=== PATIENT | female | born 1955 | race Caucasian/White ===

== ENCOUNTER → 2017-09-07 13:50 | Outpatient (CLI) | payer BC, SELFPAY ==
--- NOTE | 2017-09-07 13:53 | RAD_ITS ---
STUDY: X-RAY - RIGHT KNEE REASON FOR EXAM: Female, 61 years old. Bilateral knee pain without a known traumatic event. TECHNIQUE: 4 view(s) of the knee. COMPARISON: None. FINDINGS: Normal visualized distal femur. Normal visualized proximal tibia and fibula. Normal proximal tibiofibular articulation. There is articular space narrowing medially. Normal lateral femorotibial compartment. There is slight lateral tilt of the patella. There is a small suprapatellar joint effusion. RAD/Knee 4 or More Views IMPRESSION: Mild medial and patellofemoral compartmental arthrosis with small effusion. Electronically Signed: Willie Wood MD at 11:22 EDT , Service support ,
--- NOTE | 2017-09-07 13:53 | RAD_ITS ---
STUDY: X-RAY - LEFT KNEE REASON FOR EXAM: Female, 61 years old. Bilateral knee pain. No history of trauma. TECHNIQUE: 4 view(s) of the knee. COMPARISON: None. FINDINGS: Normal visualized distal femur. Normal visualized proximal tibia and fibula. Normal proximal tibiofibular articulation. There is mild arthrosis of the medial compartment. Normal lateral femorotibial compartment. There is slight lateral subluxation of the patella. There is a small joint effusion. RAD/Knee 4 or More Views IMPRESSION: Mild medial and patellofemoral compartment arthrosis with small effusion. Electronically Signed: Willie Wood MD at 11:21 EDT , Service support ,
== END ==
PROVIDERS: Family Provider Family Medicine; PCP Family Medicine; Visit Provider Orthopaedic Surgery
DX: M25.561 Pain in right knee (principal); M25.562 Pain in left knee
CPT/HCPCS: 73564

== ENCOUNTER → 2017-09-08 13:15 | Outpatient (CLI) | payer BC, SELFPAY ==
--- NOTE | 2017-09-08 13:17 | RAD_ITS ---
STUDY: X-RAY - LEFT WRIST REASON FOR EXAM: Female, 61 years old. Pain and swelling following a fall. TECHNIQUE: 3 view(s) of the wrist were obtained. COMPARISON: None. FINDINGS: Normal visualized distal radius and ulna. Normal radiocarpal articulation. Normal distal radioulnar articulation. Normal carpal bones. Normal carpal articulations. Normal carpometacarpal articulation of the thumb. Normal second through fifth carpometacarpal articulations. Normal visualized metacarpal bones. Dorsal soft tissue swelling. RAD/Wrist min 3 Views IMPRESSION: Dorsal soft tissue swelling. Electronically Signed: Satnam Ellis MD at 13:49 EDT Tel [phone], Service support ,
== END ==
PROVIDERS: Family Provider Family Medicine; PCP Family Medicine; Visit Provider Physician Assistant Surgical
DX: S60.212A Contusion of left wrist, initial encounter (principal)
CPT/HCPCS: 73110

== ENCOUNTER 2017-10-18 13:00 | Outpatient (RCR) | payer BC, SELFPAY ==
--- NOTE | 2017-09-19 12:58 | HP.PTEVAL ---
Patient's Visit Information SHAMIR HELM is a 61 year old F referred to Physical Therapy by Va Sandoval DO with a diagnosis of B chondromalacia patella, L jimenez's Cyst. Date of Evaluation: 09/19/17 Physical Therapist: BRIAN RichardsonT, OC - Visit Plan Frequency: 2-3x /Week Duration: 4 Weeks Plan: 2-3x/week for 4 weeks for. 1. ITB rollout and stretch. 2. teach hip ext, abd, flexion strength and stabs and progress NWB to WB and progress HEP. 3. Tens and ice as needed. - Subjective Subjective: L knee hurts actually both hurt anteriorly. Has Bakers cyst posteriorly. L knee started hurting bad over winter and visited son in April and worked in garden and hard time getting into truck at that point. Kept hurting for two weeks then got gradually better. stairs remain difficult. Currently it is not hurting very much. Weather is better. Hurts on steps. Activities are interrupted as far as long walks go, standing too long is a problem so she sits when she gets places. Sleeping is interrupted occasionally. Hard to get comfy. 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 These were no problem last year. Fell after saw doctor and hurt L wrist adn was put on ibuprofen whcih has helped knee pain.xrays negative. - Pain L knee Pain Intensity (Out of 10): 3 Pain Intensity Range: 0, 4 R knee Pain Intensity (Out of 10): 2 Pain Intensity Range: 0, 3 - Objective Walks and transfers I without antalgia today. Steps reciprocal with some tightness anteriorly B. Pes planus B causing internal tibial rotation L >R. Cyst present posterior on L LE, mild tender. LE AROM WFL at knees to 125 with tightness end range of flexion, full ext. HIPs are tight in ITB B, otherwise ROM WFL. Strength in knees 4+/5 with mild ext discomfort at full ext, hips are 3+ ext adn abd, 4- flexion, no pain. ankles 4+/5. Reflexes 2/3 patella and achilles. + patellar grind L adn max tender under lateral knee cap. - anterior drawer and varus valgus B. - Goals Goal 1:: I approp HEP for hip strength and with orthotics if patient desires. Goal Time Frame: 4-6 Weeks Goal 2:: Pain in B knees 0-1/10 at all times and 90% improved. Goal Time Frame: 4-6 Weeks Goal 3:: Walk for fitness withotu increased knee pain. Goal Time Frame: 4-6 Weeks - Rehabilitation Potential Physical Therapy Diagnosis: B patellar pain, tight ITB, weakness in hips Rehabilitation Potential: Fair - Anticipated Interventions Patient/Client Instruction: Educate patient on: Condition, Plan of Care For the Purpose of:: To decrease pain, To decrease swelling/inflammation Therapeutic Exercise to Include: Strength training, Flexibilty training For the Purpose of:: To decrease pain, To increase ROM, To improve nutrient delivery to tissue, To improve muscle performance and motor function, To improve ability of physical actions for home/community/work/leisure Manual Therapy Techniques to Include: Soft tissue mobilization For the Purpose of:: To improve nutrient delivery to tissue TENS: Yes Cryotherapy (ice pack, ice massage): Yes For the Purpose of:: To decrease pain, To decrease swelling/inflammation Thank you for the opportunity to evaluate your patient. For Medicare and Medicare HMO plans, please review the plan of care and approve it. It will need to be FAXED BACK to us at [phone] for Medicare purposes. Please let me know if there are questions or concerns regarding this plan of care. Physician Signature: Date:
--- NOTE | 2017-10-13 13:55 | HP.PTREVAL ---
Va Sandoval, DO, It has been my pleasure to treat SHAMIR HELM over the last 9 visits for B chondromalacia patella, L jimenez's Cyst. Please see the progress note below for an update on the physical therapy plan of care! Subjective: Still has some pain, not as intense. Was more this am for no apparent reason. Hips hurt lying in bed. Has ex to do at home. Objective/Function: 0-128 AROM B knees, stiff at end, blending tank tender helper underside patella. Strength to test in knees 5/5, hips 4+ abd and ext, 4/5 rotation. Walks well btu stiff upon arising, steps are reciprocal with stiff soreness descending. OVERALL SLOW IMPROVEMENT. 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 EDUCATED HER THAT IMPROVEMENT WILL BE SLOW AND SHE NEEDS CONSISTENCY WITH EX. WILL F/U WITH DOCTOR IN 2 WEEKS. Plan Plan: one more week of strength, please focus machines that patient can do at own clubhouse(she will bring a list). Then patient to see doctor the following week and stop in and let us know next step. Please do LEFS next week and give to EG. Goals Goal 1:: I approp HEP for hip strength and with orthotics if patient desires. Goal Time Frame: 4-6 Weeks Goal Progress: Goal Met Goal 2:: Pain in B knees 0-1/10 at all times and 90% improved. Goal Time Frame: 4-6 Weeks Goal Progress: slow progression Goal 3:: Walk for fitness withotu increased knee pain. Goal Time Frame: 4-6 Weeks Goal Progress: could, too busy Anticipated Interventions Patient/Client Instruction: Educate patient on: Condition, Plan of Care For the Purpose of:: To decrease pain, To decrease swelling/inflammation Therapeutic Exercise to Include: Strength training, Flexibilty training For the Purpose of:: To decrease pain, To increase ROM, To improve nutrient delivery to tissue, To improve muscle performance and motor function, To improve ability of physical actions for home/community/work/leisure Manual Therapy Techniques to Include: Soft tissue mobilization For the Purpose of:: To improve nutrient delivery to tissue TENS: Yes Cryotherapy (ice pack, ice massage): Yes For the Purpose of:: To decrease pain, To decrease swelling/inflammation Please do not hesitate to contact me at [phone] by phone or if you have questions or concerns regarding this new plan of care! Sincerely, Mitchell Knight, DPT, OC
--- NOTE | 2017-12-28 11:35 | HP.PT.NRP ---
HP - Discharge Summary (1) - Patient Information SHAMIR HELM was seen in my office for initial evaluation on 09/19/17. The following Plan of Care was established for this patient: Initial Frequency: 2-3x /Week Initial Duration: 4 Weeks - Anticipated Interventions Patient/Client Instruction: Educate patient on: Condition, Plan of Care For the Purpose of:: To decrease pain, To decrease swelling/inflammation Therapeutic Exercise to Include: Strength training, Flexibilty training For the Purpose of:: To decrease pain, To increase ROM, To improve nutrient delivery to tissue, To improve muscle performance and motor function, To improve ability of physical actions for home/community/work/leisure Manual Therapy Techniques to Include: Soft tissue mobilization For the Purpose of:: To improve nutrient delivery to tissue TENS: Yes Cryotherapy (ice pack, ice massage): Yes For the Purpose of:: To decrease pain, To decrease swelling/inflammation This patient was last seen in our office 10/18/17. Pertinent comments regarding their Physical therapy will appear below: Pt seen 11 visits of strength and progressed to I gym program. She was to stop in after her doctor f/u to ensure progress and plan but did not. At this point, it has been over two months and I will discontinue per POC At this point I will be discontinuing this patient from physical therapy. I would be happy to see this patient again in the future if found appropriate by the physician. Thank you! Mitchell Knight, DPT, OC
== END 2017-10-18 19:00 | disposition home or self-care (01) ==
LOC: PT 13:00
PROVIDERS: Family Provider Family Medicine; PCP Family Medicine; Visit Provider Orthopaedic Surgery
DX: M22.42 Chondromalacia patellae, left knee (principal); M22.41 Chondromalacia patellae, right knee; M71.22 Synovial cyst of popliteal space [Baker], left knee
CPT/HCPCS: 97110; 97140; 97162; 97530

== ENCOUNTER 2018-02-27 08:07 | Day surgery (SDC) | payer BC, SELFPAY ==
[2018-02-27] VITALS (11 sets, daily range): BP systolic 87–111; BP diastolic 59–76; PULSE 55–82; RESP 16–18; TEMP 36–37; O2SAT 95–100; BMI 28.8
--- NOTE | 2018-02-27 09:30 | COLBX_PTH ---
PATIENT: SHAMIR HELM LOC: EN U#:[id number] AGE/SX: 62/F ROOM: RE02/27/[address]: Dr. Bird Martel MD : 1955 BED: DIS: 02/27/2018 SPEC #: [id number] RECD: 02/27/18 14:35 STATUS: LATA REKelli #: [id number] WILY: 02/27/18 09:[address]: Bird Martel DEPT: SURGICAL PATHOLOGY RECD BY: Karlos Douglas ENTERED: 02/28/18 10:15 SP TYPE: COLON BX OTHR DR: MD Claudio Kim MD Tissues: Descending colon Procedures: Surgery Specimen Level IV HEADER OPERATION: Colonoscopy (MOD) PRE-OP DIAGNOSIS: Screening TISSUE SUBMITTED: Polyp of descending colon MICROSCOPIC DIAGNOSIS Descending colon polyp, biopsy: Rare fragment of benign colonic mucosa. Abundant fecal debris. AM:jenny 03/01/18 MICROSCOPIC DESCRIPTION Slides are reviewed. GROSS DESCRIPTION Received in fixative is one container labeled with the patient's name and designated descending colon polyp. The specimen consists of multiple irregular fragments of light samuel soft tissue including fecal debris that in aggregate measure 1 x 0.6 x 0.1 cm. The specimen is totally submitted in one cassette. / AM:jenny 02/28/18 TC:5 CPT: 10419
--- NOTE | 2018-02-27 09:52 | PCM.HP.STD ---
Problem List (1) Screening for intestinal cancer Status: Acute History of Present Illness Date of Admission: 02/27/18 The patient is a 62 year old F who presents for screening colonoscopy. Her previous one was 10 or 11 years prior. She has no bright red blood per rectum or melena. No abdominal pain. No unexpected weight loss. She otherwise enjoys good health. There is no family history of colon cancer Past Medical History Medical History: Medical History (Last Updated 09/08/17 @ 13:09 by Valarie Kiran) Joint swelling M25.40 Knee pain M25.569 Morning stiffness of joints M25.60 hx of cancer Allergies No Known Allergies Allergy (Verified 02/26/18 13:35) Home Medications: Ambulatory Orders Medication Instructions Recorded glucosamine sulfate 500 mg tablet 500 mg PO BID 09/07/17 omega-3 fatty acids 1,000 mg 1,000 mg PO QDAY 09/07/17 capsule Surgical History: Surgical History (Last Updated 09/07/17 @ 13:35 by Carmen Garcia) Hx of tubal ligation Z98.51 Smoking Status: Former smoker Review of Systems Constitutional: Denies: Anorexia HEENT: Denies: Difficulty Swallowing Cardiovascular: Denies: Chest Pain Respiratory: Denies: Cough Gastrointestinal: Denies: Abdominal Pain, Hematochezia, Melena Skin: Denies: Dryness Endocrine: Denies: Change in Body Habitus VTE Information - Inpt Only VTE Present on Admission: No Patient Problems: Active and Suspected Problems (Last Updated 09/08/17 @ 13:09 by Valarie Kiran) Screening for intestinal cancer (Acute) - Physical Exam General: Alert, Oriented x3, Cooperative, No apparent distress HEENT: Atraumatic Oral: Moist Mucosa Neck: Supple Lungs: Clear to auscultation Cardiovascular: Regular rate, Regular Rhythm Abdomen: Bowel Sounds Present, Soft Musculoskeletal: No Tenderness to Palpation of Joints or Extremities Psych/Mental Status: Normal Affect Vital Signs Temp Pulse Resp BP Pulse Ox 98.6 F 82 18 105/73 97 02/27/18 08:34 02/27/18 08:34 02/27/18 08:34 02/27/18 08:34 02/27/18 08:34 Oxygen Delivery Method Room Air Weight: 152 lb 5.431 oz Body Mass Index (BMI) 28.8 Assessment/Plan All Active Problems (Last Updated 09/08/17 @ 13:09 by Valarie Kiran) Screening for intestinal cancer (Acute) Strain of wrist, left (Acute) Contusion of left wrist, initial encounter (Acute) Recommended the patient is screening colonoscopy with possible biopsy or polypectomy as indicated. She is aware of the technique, benefits, risks, alternatives. She has had an opportunity to ask and have questions answered. She presents via our open access program. We will proceed as noted. Bird Martel M.D., F.A.C.S.
--- NOTE | 2018-02-27 10:21 | OP.ENDO_ITS ---
Patient Name: Radha Smith Procedure Date: 02/27/2018 9:44 AM Date of : 1955 Age: 62 Procedure: Colonoscopy Indications: Screening for colorectal malignant neoplasm Providers: Bird Martel MD Referring MD: Bird Martel MD Medicines: Midazolam 3 mg IV, Meperidine 100 mg IV Patient Profile: Last Colonoscopy: more than 10 years ago. Complications: No immediate complications. Procedure: Pre-Anesthesia Assessment: - Prior to the procedure, a History and Physical was performed, and patient medications and allergies were reviewed. The patient's tolerance of previous anesthesia was also reviewed. The risks and benefits of the procedure and the sedation options and risks were discussed with the patient. All questions were answered, and informed consent was obtained. Prior Anticoagulants: The patient has taken no previous anticoagulant or antiplatelet agents. ASA Grade Assessment: II - A patient with mild systemic disease. After reviewing the risks and benefits, the patient was deemed in satisfactory condition to undergo the procedure. After I obtained informed consent, the scope was passed under direct vision. Throughout the procedure, the patient's blood pressure, pulse, and oxygen saturations were monitored continuously. The pediatric colonoscope was introduced through the anus and advanced to the cecum, identified by appendiceal orifice and ileocecal valve. The colonoscopy was performed without difficulty. The patient tolerated the procedure well. The quality of the bowel preparation was good. The ileocecal valve was photographed. Moderate Sedation: Moderate (conscious) sedation was personally administered by the endoscopist. The following parameters were monitored: oxygen saturation, heart rate, blood pressure, and response to care. Total physician intraservice time was 15 minutes. Scope In: 9:59:12 AM Scope Withdrawal Time 0 hours 11 minutes 36 seconds Scope Out: 10:17:47 AM Total Procedure Duration Time 0 hours 18 minutes 35 seconds Findings: The perianal and digital rectal examinations were normal. A 6 mm polyp was found in the mid descending colon. The polyp was sessile. The polyp was removed with a hot snare. Resection and retrieval were complete. Multiple diverticula were found in the sigmoid colon and descending colon. Impression: - One 6 mm polyp in the mid descending colon, removed with a hot snare. Resected and retrieved. - Diverticulosis in the sigmoid colon and in the descending colon. Recommendation: - Discharge patient to home. - Resume previous diet. - Continue present medications. - Repeat colonoscopy in 5 years for surveillance based on pathology results. - Telephone my office for pathology results in 1 week. Procedure Code(s): --- Professional --- 15116, Colonoscopy, flexible; with removal of tumor(s), polyp(s), or other lesion(s) by snare technique 59341, 59, Moderate sedation services provided by the same physician or other qualified health career development associate performing the diagnostic or therapeutic service that the sedation supports, requiring the presence of an independent trained observer to assist in the monitoring of the patient's level of consciousness and physiological status; initial 15 minutes of intraservice time, patient age 5 years or older Diagnosis Code(s): --- Professional --- Z12.11, Encounter for screening for malignant neoplasm of colon D12.4, Benign neoplasm of descending colon K57.30, Diverticulosis of large intestine without perforation or abscess without bleeding CPT copyright 2017 [employer]. All rights reserved. The codes documented in this report are preliminary and upon developer architect review may be revised to meet current compliance requirements. Bird Martel MD 02/27/2018 10:21:11 AM This report has been signed electronically. Number of Addenda: 0 Note Initiated On: 02/27/2018 9:44 AM
--- OUTSIDE RECORDS SUMMARY | 2018-05-31 12:53 | XMS RPT_ITS ---
:1955 Author Organization [place] Support Name Relationship Address Phone ÁLVARO SMITH Unavailable [address] + [place] [address] WOOBR Unavailable [address] [place] [address] KENNY SMITHE Unavailable [address] + [place] [address] WOOBR Unavailable [address] [place] [address] VOLODYMYR, ÁLVARO Unavailable [address] + [place] [address] WOOBR Unavailable [address] [place] [address] VOLODYMYR, ÁLVARO Unavailable [address] + [place] [address] WOOBR Unavailable [address] [place] [address] VOLODYMYR, ÁLVARO Unavailable [address] + [place] [address] WOOBR Unavailable [address] [place] [address] VOLODYMYR, ÁLVARO Unavailable [address] + [place] [address] WOOBR Unavailable [address] [place] [address] VOLODYMYR, ÁLVARO Unavailable [address] + [place] [address] WOOBR Unavailable [address] [place] [address] VOLODYMYR, ÁLVARO Unavailable [address] + [place] [address] WOOBR Unavailable [address] [place] [address] ÁLVARO SMITH Un[address] + [place] [address] WOOBR Unavailable [address] [place] [address] ÁLVARO SMITH Unavailable [address] + [place] [address] WOOBR Unavailable [address] [place] [address] Care Team Providers Name Role Phone Bird Martel Attending Unavailable Cebul, Bird Referring Unavailable Wilson, Claudio Primary Care Unavailable Cebul, Bird Consulting Unavailable Chicorelli, Va Attending Unavailable Wilson, Claudio Referring Unavailable Chicorelli, Va Attending Unavailable Chicorelli, Va Referring Unavailable Wilson, Claudio Primary Care Unavailable Chicorelli, Va Attending Unavailable Chicorelli, Va Referring Unavailable Wilson, Claudio Primary Care Unavailable Rito, Scottie Attending Unavailable Wilson, Claudio Referring Unavailable Wilson, Claudio Primary Care Unavailable Rito, Scottie Attending Unavailable Rito, Scottie Referring Unavailable Wilson, Claudio Primary Care Unavailable Chicorelli, Va Attending Unavailable Wilson, Claudio Referring Unavailable Chicorelli, Va Attending Unavailable Wilson, Claudio Referring Unavailable Wilson, Claudio Primary Care Unavailable Nurse, Surgery Attending Unavailable Wilson, Claudio Referring Unavailable Cebul, Bird Attending Unavailable Cebul, Bird Referring Unavailable Wilson, Claudio Primary Care Unavailable PROBLEMS PROBLEMS DATE TYPE CONDITION / CODE ATTENDING STATUS SOURCE 10/26/2017 Unknown M17.0 - Bilateral Chicorelli, Active [place] primary [facility] osteoarthritis of Hospital knee / M17.0(ICD-10) Repository 12/28/2017 Unknown 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, 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, left knee Hospital / M22.42(ICD-10) Repository 09/08/2017 Unknown S60.212A - Contusion Socttie Veras Active [place] of left wrist, Community initial encounter / Hospital S60.212A(ICD-10) Repository 09/07/2017 Unknown M25.561 - Pain in Chicorelli, Active [place] right knee / [facility] M25.561(ICD-10) Hospital Repository 09/07/2017 Unknown M25.562 - Pain in Chicorelli, Active [place] left knee / [facility] M25.562(ICD-10) Hospital Repository PROCEDURES PROCEDURES No Procedure Records FoundRESULTS RESULTS OPERATIVE REPORT - Observed: 02/27/2018 Status: F Source: [place] [facility] 10:21 AM [facility] Medical Records Department [address] [place] [address] Operative Report - Endoscopy MR#: [id number] Acct: [id number] Name: SHAMIR SMITH Rep #: [id number] : 1955 62 From: Bird Martel MD PCP: Claudio Wilson MD Status: REG [facility] Patient Name: Shamir Smith Procedure Date: 02/27/2018 9:44 AM Date of : 1955 Age: 62 Procedure: Colonoscopy Indications: Screening for colorectal malignant neoplasm Providers: Bird Martel MD Referring MD: Bird Martel MD Medicines: Midazolam 3 mg IV, Meperidine 100 mg IV Patient Profile: Last Colonoscopy: more than 10 years ago. Complications: No immediate complications. Procedure: Pre-Anesthesia Assessment: - Prior to the procedure, a History and Physical was performed, and patient medications and allergies were reviewed. The patient's tolerance of previous anesthesia was also reviewed. The risks and benefits of the procedure and the sedation options and risks were discussed with the patient. All questions were answered, and informed consent was obtained. Prior Anticoagulants: The patient has taken no previous anticoagulant or antiplatelet agents. ASA Grade Assessment: II - A patient with mild systemic disease. After reviewing the risks and benefits, the patient was deemed in satisfactory condition to undergo the procedure. After I obtained informed consent, the scope was passed under direct vision. Throughout the procedure, the patient's blood pressure, pulse, and oxygen saturations were monitored continuously. The pediatric colonoscope was introduced through the anus and advanced to the cecum, identified by appendiceal orifice and ileocecal valve. The colonoscopy was performed without difficulty. The patient tolerated the procedure well. The quality of the bowel preparation was good. The ileocecal valve was photographed. Moderate Sedation: Moderate (conscious) sedation was personally administered by the endoscopist. The following parameters were monitored: oxygen saturation, heart rate, blood pressure, and response to care. Total physician intraservice time was 15 minutes. Scope In: 9:59:12 AM Scope Withdrawal Time 0 hours 11 minutes 36 seconds Scope Out: 10:17:47 AM Total Procedure Duration Time 0 hours 18 minutes 35 seconds Findings: The perianal and digital rectal examinations were normal. A 6 mm polyp was found in the mid descending colon. The polyp was sessile. The polyp was removed with a hot snare. Resection and retrieval were complete. Multiple diverticula were found in the sigmoid colon and descending colon. Impression: - One 6 mm polyp in the mid descending colon, removed with a hot snare. Resected and retrieved. - Diverticulosis in the sigmoid colon and in the descending colon. Recommendation: - Discharge patient to home. - Resume previous diet. - Continue present medications. - Repeat colonoscopy in 5 years for surveillance based on pathology results. - Telephone my office for pathology results in 1 week. Procedure Code(s): --- Professional --- 27663, Colonoscopy, flexible; with removal of tumor(s), polyp(s), or other lesion(s) by snare technique 73283, 59, Moderate sedation services provided by the same physician or other qualified health career coordinator performing the diagnostic or therapeutic service that the sedation supports, requiring the presence of an independent trained observer to assist in the monitoring of the patient's level of consciousness and physiological status; initial 15 minutes of intraservice time, patient age 5 years or older Diagnosis Code(s): --- Professional --- Z12.11, Encounter for screening for malignant neoplasm of colon D12.4, Benign neoplasm of descending colon K57.30, Diverticulosis of large intestine without perforation or abscess without bleeding CPT copyright 2017 [employer]. All rights reserved. The codes documented in this report are preliminary and upon curbstone setter review may be revised to meet current compliance requirements. Bird Martel MD 02/27/2018 10:21:11 AM This report has been signed electronically. Number of Addenda: 0 Note Initiated On: 02/27/2018 9:44 AM 02/27/18 1021 Date Bird Martel MD Cosigner Signature: Date (if indicated) CC: Claudio Wilson MD; Bird Martel MD Date Dictated: 02/27/18943 Date Transcribed: Wireless Sales Manager: MARCUS Signed HISTORY AND PHYSICAL Observed: 02/27/2018 Status: F Source: [place] [facility] 9:54 AM [facility] Medical Records Department [address] [place] [address] History and Physical 02/27/18951 MR#: [id number] Acct: [id number] Name: SHAMIR SMITH Rep #: [id number] : 1955 62 From: Bird Martel MD PCP: Claudio Wilson MD Status: REG [facility] Y Location: [place] [address] Problem List (1) Screening for intestinal cancer Status: Acute History of Present Illness Date of Admission: 02/27/18 The patient is a 62 year old F who presents for screening colonoscopy. Her previous one was 10 or 11 years prior. She has no bright red blood per rectum or melena. No abdominal pain. No unexpected weight loss. She otherwise enjoys good health. There is no family history of colon cancer Past Medical History Medical History: Medical History (Last Updated 09/08/17 @ 13:09 by Valarie Kiran) Joint swelling M25.40 Knee pain M25.569 Morning stiffness of joints M25.60 hx of cancer Allergies No Known Allergies Allergy (Verified 02/26/18 13:35) Home Medications: Ambulatory Orders Medication Instructions Recorded glucosamine sulfate 500 mg tablet 500 mg PO BID 09/07/17 omega-3 fatty acids 1,000 mg 1,000 mg PO QDAY 09/07/17 capsule Surgical History: Surgical History (Last Updated 09/07/17 @ 13:35 by Carmen Garcia) Hx of tubal ligation Z98.51 Smoking Status: Former smoker Review of Systems Constitutional: Denies: Anorexia HEENT: Denies: Difficulty Swallowing Cardiovascular: Denies: Chest Pain Respiratory: Denies: Cough Gastrointestinal: Denies: Abdominal Pain, Hematochezia, Melena Skin: Denies: Dryness Endocrine: Denies: Change in Body Habitus VTE Information - Inpt Only VTE Present on Admission: No Patient Problems: Active and Suspected Problems (Last Updated 09/08/17 @ 13:09 by Valarie Kiran) Screening for intestinal cancer (Acute) - Physical Exam General: Alert, Oriented x3, Cooperative, No apparent distress HEENT: Atraumatic Oral: Moist Mucosa Neck: Supple Lungs: Clear to auscultation Cardiovascular: Regular rate, Regular Rhythm Abdomen: Bowel Sounds Present, Soft Musculoskeletal: No Tenderness to Palpation of Joints or Extremities Psych/Mental Status: Normal Affect Vital Signs Temp Pulse Resp BP Pulse Ox 98.6 F 82 18 105/73 97 02/27/18 08:34 02/27/18 08:34 02/27/18 08:34 02/27/18 08:34 02/27/18 08:34 Oxygen Delivery Method Room Air Weight: 152 lb 5.431 oz Body Mass Index (BMI) 28.8 Assessment/Plan All Active Problems (Last Updated 09/08/17 @ 13:09 by Valarie Kiran) Screening for intestinal cancer (Acute) Strain of wrist, left (Acute) Contusion of left wrist, initial encounter (Acute) Recommended the patient is screening colonoscopy with possible biopsy or polypectomy as indicated. She is aware of the technique, benefits, risks, alternatives. She has had an opportunity to ask and have questions answered. She presents via our open access program. We will proceed as noted. Bird Martel M.D., F.A.C.S. 02/27/18 0954 <Electronically signed by Bird Martel MD> Date Bird Martel MD Cosigner Signature: Date (if applicable) CC: Claudio Wilson MD; Bird Martel MD Signed COLON BIOPSY (CHOOSE Observed: 02/27/2018 Status: F Source: [place] SITE) 9:30 AM [facility] Patient: SHAMIR SMITH : 1955 (62/F) Acct Num: [id number] Phys: Delonte CADENA,Bird Unit Num: [id number] Loc: EN Specimen: [id number] Received: 02/27/182 Spec Type: COLON BX TISSUES 1 TISSUES: Descending colon GROSS DESCRIPTION Received in fixative is one container labeled with the patient's name and designated descending colon polyp. The specimen consists of multiple irregular fragments of light samuel soft tissue including fecal debris that in aggregate measure 1 x 0.6 x 0.1 cm. The specimen is totally submitted in one cassette. / AM:jenny 02/28/18 TC:5 CPT: 25835 HEADER OPERATION: Colonoscopy (MOD) PRE-OP DIAGNOSIS: Screening TISSUE SUBMITTED: Polyp of descending colon MICROSCOPIC DESCRIPTION Slides are reviewed. MICROSCOPIC DIAGNOSIS Descending colon polyp, biopsy: Rare fragment of benign colonic mucosa. Abundant fecal debris. AM:jenny 03/01/18 Signed Karson Rousseau DO 03/01/18 <signature on file> Performed By: #### PCOLBX #### [facility] [address] [place] [address]. [place], [address] ORTHOPEDIC VISIT Observed: 10/26/2017 Status: F Source: [place] REPORT 2:51 PM [facility] Orth[facility] Sports Medicine [address] [place] [address] OFFICE VISIT Date of Service: 10/26/17 MR#: [id number] Acct: [id number] Name: SHAMIR SMITH Rep #: [id number] : 1955 Provider: Va Sandoval DO Age/Sex: 61/F Location[place] [facility] Status: Signed Intake Intake Visit Reasons: BILAT KNEE PAIN Chief Complaint: bilat knee pain Is patient in pain?: Yes Allergies No Known Allergies Allergy (Verified 10/26/17 13:14) Medications glucosamine sulfate 500 mg tablet 500 mg PO BID 09/07/17 [History Confirmed 10/26/17] omega-3 fatty acids 1,000 mg capsule 1,000 mg PO QDAY 09/07/17 [History Confirmed 10/26/17] PFSH Medical History Joint swelling (Acute) Knee pain (Acute) Morning stiffness of joints (Acute) hx of cancer (Acute) Surgical History Hx of tubal ligation (Acute) Social History Smoking Status: Former smoker how long ago did patient quit smoking: stopped in 1976 alcohol intake: current alcohol intake frequency: a few times a week what type of physical activity do you participate in: none do you feel safe at home: Yes HPI BILAT KNEE PAIN: Details: SHAMIR SMITH is a 61 year old F here today for a followup on her bilateral knees. She states that she continues to have knee pain and denies any improvement. She has pain over her bilateral anterior knee and left posterior knee. Patient denies any recent clicking. She has swelling over her posterior left knee. She denies any knee injections. Patient completed physical therapy which was not helpful. Denies numbness, tingling or other associated symptoms. ROS Const Reports system reviewed and no additional complaints, except as docu Eyes Reports system reviewed and no additional complaints, except as docu ENT Reports system reviewed and no additional complaints, except as docu Card Reports system reviewed and no additional complaints, except as docu Resp Reports system reviewed and no additional complaints, except as docu GI Reports system reviewed and no additional complaints, except as docu Reports system reviewed and no additional complaints, except as docu Musc Reports joint pain, Reports joint swelling Skin/Breast Reports system reviewed and no additional complaints, except as docu Neuro Yes system reviewed and no additional complaints, except as docu Psych Reports system reviewed and no additional complaints, except as docu Endo Reports system reviewed and no additional complaints, except as docu Ortho Exam Right Knee Skin/Wound: Yes CDI Contralateral Normal: No Swelling: No Homans Sign: No Knee ROM: Yes ROM-Extension -20 to 0, Yes ROM-Flexion 0-140 Examination: Yes Pain with flexion Left Knee Skin/Wound: Yes CDI Contralateral Normal: No Swelling: No Homans Sign: No Knee ROM: Yes ROM-Extension -20 to 0 Examination: Yes Pain with flexion Office Procedures Ortho Injections Injections Yes Knee Bilateral Details: Obtained consent for injection. Under sterile conditions, aspirated 3cc from the left knee, and injected the patients right and left knee with a 10cc cocktail of 8cc bupivacaine and 2cc kenalog. The patient tolerated the injection well without any noted complication. Patient should call our office if redness develops, pain worsens or if they have any concerns. Office Meds Kenalog Performing Provider: Va Sandoval DO Administered by: Va Sandoval DO on 10/26/17 13:37 Dose Route Admin Location Lot Number Expiration DateNDC Reproductive Healthcare Assistant 80 mg Intra-Articularbilat knees [id number] 02/10/19 3355-4474-62 [facility] Assessment AND Plan 1. Osteoarthritis of both knees, unspecified osteoarthritis type M17.0 Plan discussed options today, continued PT, exercise, core strengthening otc nsaids, and possible steroid injections. patient elected to proceed with steroid injection today. Reviewed her PT and that her treatment option today is steroid injection. Instructed to remain active and reviewed that she can have a flushing reaction to this as she does to prednisone. Follow up in 3-4 months prn or sooner if pain, swelling, numbness or associated symptoms, or concerns develop. All questions answered. Patient in agreement of plan. Orders Orders: Medications Discontinued: Kenalog (triamcinolone acetonide) Disco80 mg (8 mL) Intra- Articular ONCE NS Blake Nguyen ntinued Reason: Office Medication has bee n Documented as given Coding Level of Care Code Off vis,est,level 3 Diagnoses Osteoarthritis of both knees, unspecified osteoarthritis type M17.0 Osteoarthritis type: unspecified Additional Codes lamp shade sewer.knee (12017) 10/26/17 4411 <Electronically signed by Va Sandoval DO> Date Va Sandoval DO Cosigner Signature: Date (if applicable) CC: RE-EVALUATION - PT (1) Observed: 10/16/2017 Status: F Source: [place] 6:44 AM [facility] [place], [place] [id number] Fax REEVALUATION / MEDICARE RECERTIFICATION PHYSICAL THERAPY MR#: [id number] Acct: [id number] Name: SHAMIR SMITH Rep #: [id number] : 1955 61 From: Mitchell Knight DPT, OCS, CSCS Referring DrBibiana: Va Sandoval DO Status: REG RCR Insurance: [employer] S[employer]F PA[employer] INSURANCE Va Sandoval, DO, It has been my pleasure to treat SHAMIR SMITH over the last 9 visits for B chondromalacia patella, L young's Cyst. Please see the progress note below for an update on the physical therapy plan of care! Subjective: Still has some pain, not as intense. Was more this am for no apparent reason. Hips hurt lying in bed. Has ex to do at home. Objective/Function: 0-128 AROM B knees, stiff at end, slurry tank tender underside patella. Strength to test in knees 5/5, hips 4+ abd and ext, 4/5 rotation. Walks well btu stiff upon arising, steps are reciprocal with stiff soreness descending. OVERALL SLOW IMPROVEMENT. STILL MORE PAIN THAN SHE WANTS ASSISTED. EDUCATED HER THAT IMPROVEMENT WILL BE SLOW AND SHE NEEDS CONSISTENCY WITH EX. WILL F/U WITH DOCTOR IN 2 WEEKS. Plan Plan: one more week of strength, please focus machines that patient can do at own clubhouse(she will bring a list). Then patient to see doctor the following week and stop in and let us know next step. Please do LEFS next week and give to EG. Goals Goal 1:: I approp HEP for hip strength and with orthotics if patient desires. Goal Time Frame: 4-6 Weeks Goal Progress: Goal Met Goal 2:: Pain in B knees 0-1/10 at all times and 90% improved. Goal Time Frame: 4-6 Weeks Goal Progress: slow progression Goal 3:: Walk for fitness withotu increased knee pain. Goal Time Frame: 4-6 Weeks Goal Progress: could, too busy Anticipated Interventions Patient/Client Instruction: Educate patient on: Condition, Plan of Care For the Purpose of:: To decrease pain, To decrease swelling/inflammation Therapeutic Exercise to Include: Strength training, Flexibilty training For the Purpose of:: To decrease pain, To increase ROM, To improve nutrient delivery to tissue, To improve muscle performance and motor function, To improve ability of physical actions for home/community/work/leisure Manual Therapy Techniques to Include: Soft tissue mobilization For the Purpose of:: To improve nutrient delivery to tissue TENS: Yes Cryotherapy (ice pack, ice massage): Yes For the Purpose of:: To decrease pain, To decrease swelling/inflammation Please do not hesitate to contact me at [phone] by phone or if you have questions or concerns regarding this new plan of care! Sincerely, Mitchell Knight DPT, OC <Electronically signed by Mitchell Knight DPT, NEENA, CSCS> 10/16/17 0644 CC: Va Sandoval DO; Claudio Wilson MD EBG Signed For Medicare only, by signing this I certify the plan of care. Physicians Signature Date [place] EVALUATION (1) Observed: 09/20/2017 Status: F Source: [place] - PT 7:33 AM [facility] [address] [place] [address] Fax REHABILITATION SERVICES INITIAL EVALUATION MR#: [id number] Acct: [id number] Name: SHAMIR SMITH Rep #: [id number] : 1955 61 From: Mitchell Knight DPT, NEENA, CSCS Referring Dr.: Va Sandoval DO Status: REG RCR Insurance: [employer] SELF PAY INSURANCE Patient's Visit Information SHAMIR SMITH is a 61 year old F referred to Physical Therapy by Va Sandoval DO with a diagnosis of B chondromalacia patella, L young's Cyst. Date of Evaluation: 09/19/17 Physical Therapist: Mitchell Knight DPT, SELWYN - Visit Plan Frequency: 2-3x /Week Duration: 4 Weeks Plan: 2-3x/week for 4 weeks for. 1. ITB rollout and stretch. 2. teach hip ext, abd, flexion strength and stabs and progress NWB to WB and progress HEP. 3. Tens and ice as needed. - Subjective Subjective: L knee hurts actually both hurt anteriorly. Has Bakers cyst posteriorly. L knee started hurting bad over winter and visited son in April and worked in garden and hard time getting into truck at that point. Kept hurting for two weeks then got gradually better. stairs remain difficult. Currently it is not hurting very much. Weather is better. Hurts on steps. Activities are interrupted as far as long walks go, standing too long is a problem so she sits when she gets places. Sleeping is interrupted occasionally. Hard to get comfy. 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 These were no problem last year. Fell after saw doctor and hurt L wrist adn was put on ibuprofen whcih has helped knee pain.xrays negative. - Pain L knee Pain Intensity (Out of 10): 3 Pain Intensity Range: 0, 4 R knee Pain Intensity (Out of 10): 2 Pain Intensity Range: 0, 3 - Objective Walks and transfers I without antalgia today. Steps reciprocal with some tightness anteriorly B. Pes planus B causing internal tibial rotation L >R. Cyst present posterior on L LE, mild tender. LE AROM WFL at knees to 125 with tightness end range of flexion, full ext. HIPs are tight in ITB B, otherwise ROM WFL. Strength in knees 4+/5 with mild ext discomfort at full ext, hips are 3+ ext adn abd, 4- flexion, no pain. ankles 4+/5. Reflexes 2/3 patella and achilles. + patellar grind L adn max tender under lateral knee cap. - anterior drawer and varus valgus B. - Goals Goal 1:: I approp HEP for hip strength and with orthotics if patient desires. Goal Time Frame: 4-6 Weeks Goal 2:: Pain in B knees 0-1/10 at all times and 90% improved. Goal Time Frame: 4-6 Weeks Goal 3:: Walk for fitness withotu increased knee pain. Goal Time Frame: 4-6 Weeks - Rehabilitation Potential Physical Therapy Diagnosis: B patellar pain, tight ITB, weakness in hips Rehabilitation Potential: Fair - Anticipated Interventions Patient/Client Instruction: Educate patient on: Condition, Plan of Care For the Purpose of:: To decrease pain, To decrease swelling/inflammation Therapeutic Exercise to Include: Strength training, Flexibilty training For the Purpose of:: To decrease pain, To increase ROM, To improve nutrient delivery to tissue, To improve muscle performance and motor function, To improve ability of physical actions for home/community/work/leisure Manual Therapy Techniques to Include: Soft tissue mobilization For the Purpose of:: To improve nutrient delivery to tissue TENS: Yes Cryotherapy (ice pack, ice massage): Yes For the Purpose of:: To decrease pain, To decrease swelling/inflammation Thank you for the opportunity to evaluate your patient. For Medicare and Medicare HMO plans, please review the plan of care and approve it. It will need to be FAXED BACK to us at [phone] for Medicare purposes. Please let me know if there are questions or concerns regarding this plan of care. Physician Signature: Date: <Electronically signed by Mitchell Knight DPT, OCS, CSCS> 09/20/17 0733 CC: Va Sandoval DO; Claudio Wilson MD EBG Signed For Medicare only, by signing this I certify the plan of care. Physicians Signature Date ORTHOPEDIC VISIT Observed: 09/12/2017 Status: F Source: [place] RE[place] 9:19 AM [facility] Orthopaedics AND Sports Medicine [address] [place] [address] OFFICE VISIT Date of Service: 09/07/17 MR#: [id number] Acct: [id number] Name: SHAMIR SMITH Rep #: [id number] : 1955 Provider: Va Sandoval DO Age/Sex: 61/F [place] [facility] [place] [place] Status: Signed Intake Intake Visit Reasons: Bilat Knee Pain Chief Complaint: bilat knee pain Operating Room Surgical Technician Required: No Is patient in pain?: No Allergies No Known Allergies Allergy (Unverified 09/08/17 13:09) Medications glucosamine sulfate 500 mg tablet 500 mg PO BID 09/07/17 [History Confirmed 09/08/17] omega-3 fatty acids 1,000 mg capsule 1,000 mg PO QDAY 09/07/17 [History Confirmed 09/08/17] PFSH Medical History Joint swelling (Acute) Knee pain (Acute) Morning stiffness of joints (Acute) hx of cancer (Acute) Surgical History Hx of tubal ligation (Acute) Social History Smoking Status: Former smoker how long ago did patient quit smoking: stopped in 1976 alcohol intake: current alcohol intake frequency: a few times a week what type of physical activity do you participate in: none do you feel safe at home: Yes HPI Bilat Knee Pain: Chief Complaint: bilat knee pain Details: SHAMIR SMITH is a 61 year old F here today for bilat knee pain. She says its worse when she stands, she says its a 6/10 on the pain scale. It is better when she is sitting or relaxing. But if she sits too long or stands too long it hurts. pain is across knee cap on her right knee. on the left knee it is all up and down the back of the knee. occasionally will take otc pain meds. She doesn't have knee braces. Patient states that 4 years ago she fell on her knees on a hard surface several times over the course of 6 months. She has not gotten any X-rays or any MRI's done. She also has not gotten any injections in them before or have gone to physical therapy[place] [facility] [place] per HPI, Reports abnormal walking, Reports joint pain, Reports muscle weakness, Reports joint swelling, Reports muscle cramps, Reports stiffness Neuro Yes abnormal walking Ortho Exam Right Knee Skin/Wound: Yes CDI Patella Grind: Yes KNEE: patella tracks laterally. Left Knee Skin/Wound: Yes CDI Patella Grind: Yes KNEE: bakers cyst. 5/5 quad, 5/5 hamstring, 5/5 ankle PF, 5/5 ankle DF, 5/5 great toe, 5/5 hip flexion, 5/5 hip extension bilaterally. symmetrical reflexes. neuro intact. crepitus. Assessment AND Plan 1. 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 See imaging report in chart for further details. Spoke with the patient about the anatomy of the knee and etiology of her pain. Spoke with her about a bakers cyst on her left knee and doing conservative treatment. She might have a degenerative meniscus tear of her left knee but it is not symptomatic. Explained she would benefit from physical therapy for quad strengthening. She would be a candidate for cartilage injections and steroid injections. Patient wanted to wait for on the injections. If she continues to have pain in 6 weeks, she will get injections and an aspiration of her bakers cyst on her left knee. Follow up in 6 weeks or sooner if pain, swelling, numbness or associated symptoms, or concerns develop. All questions answered. Patient in agreement of plan. 2. 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; M22.42 Synovial cyst of popliteal space [Young], left knee M71.22 09/12/17 0919 <Electronically signed by aV Sandoval DO> Date Va Sandoval DO Cosigner Signature: Date (if applicable) CC: URGENT CARE VISIT Observed: 09/08/2017 Status: F Source: ALEX REPORT 3:[address] [address] OFFICE VISIT Date of Service: 09/08/17 MR#: [id number] Acct: [id number] Name: SHAMIR SMITH Rep #: [id number] : 1955 Provider: Scottie LANGFORD Age/Sex: 61/F [place] [facility] [place] Status: Signed Intake Vital Signs09/08/17 Height 5 ft 2 in Intake Visit Reasons: FELL Allergies No Known Allergies Allergy (Unverified 09/08/17 13:09) Medications glucosamine sulfate 500 mg tablet 500 mg PO BID 09/07/17 [History Confirmed 09/08/17] omega-3 fatty acids 1,000 mg capsule 1,000 mg PO QDAY 09/07/17 [History Confirmed 09/08/17] PFSH Medical History Joint swelling (Acute) Knee pain (Acute) Morning stiffness of joints (Acute) hx of cancer (Acute) Surgical History Hx of tubal ligation (Acute) Social History Smoking Status: Former smoker how long ago did patient quit smoking: stopped in 1976 alcohol intake: current alcohol intake frequency: a few times a week what type of physical activity do you participate in: none do you feel safe at home: Yes HPI HPI Details: SHAMIR SMITH, is a 61 F who presents to the office today for left wrist pain after a fall yesterday. Patient states that she fell on her outstretched arm and now has wrist pain. She has tried ice and ibuprofen with only moderate relief. She currently rates the pain 3-4 out of 10. She denies any numbness or tingling or loss of range of motion to the hand and wrist. No other associated symptoms or alleviating/aggravating factors. ROS Const Constitutional: No chills, fever(s), fatigue or abnormal sleep pattern Musc Musculoskeletal: Positive for joint pain; no joint swelling or limited range of motion Skin Skin: No wounds or lesions Neuro Neurology: No behavioral changes or confusion Psych Psychiatric: No behavioral changes, No confusion, No abnormal sleep pattern Endo Endocrine: No fatigue Exam Const General: cooperative, healthy appearing Skin General: no rashes or lesions noted Neuro General: alert, CN's II-XI intact bilaterally Extrem General: full ROM, normal capillary refill, no joint enlargement Other: Pain to palpation over the distal ulna and radius with no obvious deformity felt. Full range of motion, strength and sensation. Psych Appearance: grossly normal Mental Status: mental status grossly normal Assessment AND Plan Problems 1. Contusion of left wrist, initial encounter S60.212A Status Acute 2. Strain of left wrist, initial encounter S66.912A Status Acute Plan X-ray of the left wrist red and interpreted by myself to find no acute abnormalities. Awaiting radiology interpretation at time of dictation. Patient placed in a wrist brace and advised to use it for the next 2 weeks except for at night. Advised to use ibuprofen or Tylenol as needed for pain. Advised of rice techniques. Discussed potential red flags and when appropriate report to the ED. Patient verbalized understanding of all the above. This note was generated with [employer] software. It may contain incorrect words, spelling, and punctuation that were not noted in checking the note before signing. Orders Orders: Coding Level of Care Code Off vis,new,level 4 Diagnoses Contusion of left wrist, initial encounter S60.212A Strain of left wrist, initial encounter S66.912A Encounter type: initial encounter 09/08/17 1532 <Electronically signed by Scottie LANGFORD> Date Scottie LANGFORD Cosigner Signature: Date (if applicable) CC: WRIST MIN 3 VIEWS Observed: 09/08/2017 Status: F Source: [place] 1:17 PM [facility] Imaging Services [address] [place] [address] Wrist min 3 Views MR#: [id number] Acct: [id number] Name: SHAMIR SMITH Patience Rep #: [id number] : 1955 F 61 From: Satnam Ellis MD PCP: Claudio Wilson MD Status: REG CLI Study: Wrist min 3 Views Date of Exam: 09/08/17 Exam# [id number] Ordering Dr: Scottie Veras STUDY: X-RAY - LEFT WRIST REASON FOR EXAM: Female, 61 years old. Pain and swelling following a fall. TECHNIQUE: 3 view(s) of the wrist were obtained. COMPARISON: None. FINDINGS: Normal visualized distal radius and ulna. Normal radiocarpal articulation. Normal distal radioulnar articulation. Normal carpal bones. Normal carpal articulations. Normal carpometacarpal articulation of the thumb. Normal second through fifth carpometacarpal articulations. Normal visualized metacarpal bones. Dorsal soft tissue swelling. RAD/Wrist min 3 Views IMPRESSION: Dorsal soft tissue swelling. Electronically Signed: Satnam Ellis MD at 13:49 EDT Tel [phone], Service support , CC: Scottie LANGFORD; Claudio Wilson MD Wireless Sales Manager: Signed KNEE 4 OR MORE Observed: 09/07/2017 Status: F Source: [place] VIEWS 1:53 PM [facility] Imaging Services [address] [place] [address] Knee 4 or More Views MR#: [id number] Acct: [id number] Name: SHAMIR SMITH aPtience Rep #: [id number] : 1955 F 61 From: Willie Wood MD PCP: Claudio Wilson MD Status: REG CLI Study: Knee 4 or More Views Date of Exam: 09/07/17 Exam# [id number] Ordering Dr: Va Sandoval DO STUDY: X-RAY - LEFT KNEE REASON FOR EXAM: Female, 61 years old. Bilateral knee pain. No history of trauma. TECHNIQUE: 4 view(s) of the knee. COMPARISON: None. FINDINGS: Normal visualized distal femur. Normal visualized proximal tibia and fibula. Normal proximal tibiofibular articulation. There is mild arthrosis of the medial compartment. Normal lateral femorotibial compartment. There is slight lateral subluxation of the patella. There is a small joint effusion. RAD/Knee 4 or More Views IMPRESSION: Mild medial and patellofemoral compartment arthrosis with small effusion. Electronically Signed: Willie Wood MD at 11:21 EDT , Service support , CC: Va Sandoval DO; Claudio Wilson MD Wireless Sales Manager: Signed KNEE 4 OR MORE Observed: 09/07/2017 Status: F Source: [place] VIEWS 1:53 PM [facility] Imaging Services [address] [place] [address] Knee 4 or More Views MR#: [id number] Acct: [id number] Name: SHAMIR SMITH Rep #: [id number] : 1955 F 61 From: Willie Wood MD PCP: Claudio Wilson MD Status: REG CLI Study: Knee 4 or More Views Date of Exam: 09/07/17 Exam# [id number] Ordering Dr: Va Sandoval DO STUDY: X-RAY - RIGHT KNEE REASON FOR EXAM: Female, 61 years old. Bilateral knee pain without a known traumatic event. TECHNIQUE: 4 view(s) of the knee. COMPARISON: None. FINDINGS: Normal visualized distal femur. Normal visualized proximal tibia and fibula. Normal proximal tibiofibular articulation. There is articular space narrowing medially. Normal lateral femorotibial compartment. There is slight lateral tilt of the patella. There is a small suprapatellar joint effusion. RAD/Knee 4 or More Views IMPRESSION: Mild medial and patellofemoral compartmental arthrosis with small effusion. Electronically Signed: Willie Wood MD at 11:22 EDT , Service support , CC: Va Sandoval DO; Claudio Wilson MD Wireless Sales Manager: Signed ALLERGIES ALLERGIES DATE TYPE / CODE NAME / CODE REACTION SEVERITY SOURCE 02/26/2018 Drug No Known Unknown Alex [facility] Allergy/4160 Allergies/F00 [facility] [address](SNOMED 7307549(RXNOR Repository CT) M) ENCOUNTERS ENCOUNTERS ADMIT/DISCHARGE ACCOUNT ADMITTING ENCOUNTER LOCATION SOURCE NUMBER CLASS 02/27/2018 [id number] Ambulatory BMSBuilding:B Alex 3 MS.CF.[facility] Repository 02/27/2018/ [id number] [place] 8 [facility] ing:ENRoom: Repository AC16 02/05/2018/ [id number] Ambulatory BMSBuilding:B [place] 8 7 [place].[facility] Repository 10/26/2017/ [id number] Ambulatory BMSBuilding:B [place] 9 [facility] Repository 10/18/2017/ [id number] Ambulatory [place] Alex 8 6 [facility] ing:PT Repository 09/12/2017 [id number] Ambulatory BMSBuilding:B [place] 2 [facility] Repository 09/08/2017 [id number] Ambulatory [place] 6 [facility] ing:HPRAD Repository 09/08/2017/ [id number] Ambulatory BMSBuilding:B Alex 8 2 MS.[facility] Repository 09/07/2017 [id number] Ambulatory [place] Alex 4 [facility] ing:HPRAD Repository 09/07/2017/ [id number] Ambulatory BMSBuilding:B [place] 8 0 [facility] Repository PAYERS PAYERS ENCOUNTER GUARANTOR PAYER SUBSCRIBER SOURCE 02/27/2018 SHAMIR [id number] Primary SHAMIR [place] Insurance:ANTHEMPolic FAUGHTDOB: [facility] [address] [place] Number: [id number] [facility] [address]Iwz: (323) [id number] Repository [phone] (HP) Date:8096-43-68MW [id number] [place] [address]XQ: 02/27/2018 Secondary NOT GIVENUNK [place] Insurance:SELF PAY [facility] Number: Effective Repository Date:2018-02-27 02/27/2018 SHAMIR Morin [id number] Primary SHAMIR [place] Insurance:ANTHEMPolic FAUGHTDOB: [address], y Number: [id number] Navajo Medical Center [address]Pai: (330) [id number] Repository [phone] () Date:2225-48-58QU [address] [place] [address]UZ: 02/27/2018 Secondary NOT GIVENUNK Alex Insurance:SELF PAY [facility] Number: Effective Repository Date:2018-02-05 02/05/2018 SHAMIR Morin [id number] Primary SHAMIR Morin [place] Insurance:ANTHEMPolic FAUGHTDOB: [address], y Number: [id number] Navajo Medical Center [address]Qsc: (330) [id number] Repository [phone] () Date:2593-81-91CZ [address] [place] [address] [place] [address]ZP: 02/05/2018 Secondary NOT GIVENUNK Alex Insurance:SELF PAY [facility] Number: Effective Repository Date:2018-02-05 10/26/2017 SHAMIR Morin [id number] Primary SHAMIR [place] Insurance:ANTHEMPolic FAUGHTDOB: [address], y Number: [id number] Navajo Medical Center [address]Qpj: (998) [id number] Repository [phone] () Date:9517-19-35EB [address] [address]NM: 10/26/2017 Secondary NOT GIVENUNK Alex Insurance:SELF PAY [facility] Number: Effective Repository Date:2017-10-26 10/18/2017 SHAMRI Morin [id number] Primary SHAMIR Morin [place] Insurance:ANTHEMPolic FAUGHTDOB: [address], [place] Number: [id number] Navajo Medical Center [address]Lac: (330) [id number] Repository [phone] (HP) Date:6682-52-34WB [address] [place] [address]WB: 10/18/2017 Secondary NOT GIVENUNK Alex Insurance:SELF PAY [facility] Number: Effective Repository Date:2017-09-07 09/12/2017 SHAMIR [id number] Primary SHAMIR Morin [place] Insurance:ANTHEMPolic FAUGHTDOB: [address], y Number: [id number] Navajo Medical Center [address]Nsl: (330) [id number] Repository [phone] () Date:4961-44-38PP [address] [place] [address] [place] [address]IB: 09/12/2017 Secondary NOT GIVENUNK Alex Insurance:SELF PAY [facility] Number: Effective Repository Date:2017-09-08 09/08/2017 SHAMIR Morin [id number] Primary SHAMIR Morin [place] Insurance:ANTHEMPolic FAUGHTDOB: [address], y Number: [id number] Navajo Medical Center [address]Vpy: (330) [id number] Repository [phone] () Date:2269-10-28FM [address] [place] [address]FY: 09/08/2017 Secondary NOT GIVENUNK [place] Insurance:SELF PAY [facility] Number: Effective Repository Date:2017-09-08 09/08/2017 SHAMIR [id number] Primary SHAMIR Morin [place] Insurance:ANTHEMPolic FAUGHTDOB: [address], y Number: [id number] Navajo Medical Center [address]Hsc: (330) [id number] Repository [phone] () Date:6327-04-74CY [address]PDNX[place] [place] [address]OG: 09/08/2017 Secondary NOT GIVENUNK Alex Insurance:SELF PAY [facility] Number: Effective Repository Date:2017-09-08 09/07/2017 BANDAR C [id number] Primary BANDAR [place] Insurance:ANTHEMPolic FAUGHTDOB: [address], y Number: [id number] Navajo Medical Center [address]Sry: (330 [id number] Repository [phone] () Date:1637-65-39PV [address] [place] [address]TI: 09/07/2017 Secondary NOT GIVENUNK [place] Insurance:SELF PAY [facility] Number: Effective Repository Date:2017-09-07 09/07/2017 SHAMIR Morin [id number] Primary SHAMIR [place] Insurance:ANTHEMPolic FAUGHTDOB: [address], y Number: [id number] Navajo Medical Center [address]Xok: (330 [id number] Repository [phone] () Date:1553-40-34IV [id number] [place] [address]NI: 09/07/2017 Secondary NOT GIVENUNK Alex Insurance:SELF PAY [facility] Number: Effective Repository Date:2017-08-11
== END 2018-02-27 15:50 | disposition home or self-care (01) ==
LOC: EN 08:08 → AC 08:10
PROVIDERS: Family Provider Family Medicine; PCP Family Medicine; Referring Provider Surgery; Visit Provider Surgery
PROC: 0DJD8ZZ Inspection of Lower Intestinal Tract, Via Natural or Artificial Opening Endoscopic (ICD-10-PCS; CPT 45378; principal; 2018-02-27 09:25)
DX: Z12.11 Encounter for screening for malignant neoplasm of colon (principal); K57.30 Diverticulosis of large intestine without perforation or abscess without bleeding; D12.4 Benign neoplasm of descending colon; Z87.891 Personal history of nicotine dependence
CPT/HCPCS: 45380; 88305; 99152; 99153; J7120

== ENCOUNTER → 2019-03-26 14:58 | Outpatient (CLI) | payer BC, SELFPAY ==
[2019-03-26 14:50] VITALS: BMI 28.8
--- NOTE | 2019-03-26 14:58 | RAD_ITS ---
STUDY: X-RAY - RIGHT WRIST REASON FOR EXAM: Female, 63 years old. Numbness and tingling for 3 weeks. TECHNIQUE: 3 view(s) of the wrist were obtained. COMPARISON: None. FINDINGS: Generalized osteopenia. Normal visualized distal radius and ulna. Normal radiocarpal articulation. Normal distal radioulnar articulation. Normal carpal bones. Arthrosis of the radial carpal row. Arthrosis at the first CMC joint. Normal second through fifth carpometacarpal articulations. Normal visualized metacarpal bones. The soft tissue structures are unremarkable. RAD/Wrist min 3 Views IMPRESSION: Osteopenia with osteoarthritic changes as described. No acute finding. Electronically Signed: Willie Wood MD at 11:16 EST , Service support ,
--- NOTE | 2019-03-26 14:58 | RAD_ITS ---
STUDY: X-RAY - LEFT WRIST REASON FOR EXAM: Numbness and tingling for 3 weeks. TECHNIQUE: 3 view(s) of the wrist were obtained. COMPARISON: Radiographs 09/08/2017. FINDINGS: There is osteopenia. Normal visualized distal radius and ulna. Normal radiocarpal articulation. Normal distal radioulnar articulation. Normal carpal bones. There is questionable widening of the scapholunate interval measuring 22 mm, an interval change since the prior study. Normal carpometacarpal articulation of the thumb. Normal second through fifth carpometacarpal articulations. Normal visualized metacarpal bones. The soft tissue structures are unremarkable. RAD/Wrist min 3 Views IMPRESSION: Osteopenia. Questionable widening of the scapholunate interval. Otherwise, unremarkable x-ray examination of the left wrist. Electronically Signed: Weston Dougherty MD at 11:53 EST Tel , Service support ,
== END ==
PROVIDERS: Family Provider Family Medicine; PCP Family Medicine; Referring Provider Orthopaedic Surgery; Visit Provider Orthopaedic Surgery
DX: M25.531 Pain in right wrist (principal); M25.532 Pain in left wrist; R20.0 Anesthesia of skin; R20.2 Paresthesia of skin
CPT/HCPCS: 73110

== ENCOUNTER → 2020-02-26 10:50 | Outpatient (CLI) | payer BC, SELFPAY ==
[2019-04-23 09:04] VITALS: BMI 28.8
--- NOTE | 2020-02-26 11:08 | VDLE_ITS ---
Reason For Study: Chronic venous insufficiency RIGHT LEFT CFV is compressible, spontaneous, phasic, CFV is compressible, spontaneous, phasic, competent and demonstrates normal competent, and demonstrates normal augmentation. augmentation. FV is compressible, spontaneous, phasic, FV is compressible, spontaneous, phasic, competent and demonstrates normal competent and demonstrates normal augmentation. augmentation. POP V is compressible, spontaneous, phasic, POP V is compressible, spontaneous, phasic, competent and demonstrates normal competent and demonstrates normal augmentation. augmentation. T/P Trunk is compressible. T/P Trunk is compressible. PTV is compressible. PTV is compressible. RT PerV is compressible. LT PerV is compressible. SFJ is competent and measures 0.49 x 0.70 cm. SFJ is competent and measures 0.93 x 0.85 cm. GSV proximal thigh measures 0.32 x 0.32 cm. GSV proximal thigh measures 0.32 x 0.28 cm. GSV at knee measures 0.29 x 0.30 cm. GSV at knee measures 0.33 x 0.32 cm. GSV is competent throughout. GSV is competent throughout. SSV at junction is competent and measures SSV at junction is competent and measures 0.25 x 0.23 cm. 0.28 x 0.28 cm. Procedure This is a venous duplex using B-mode, color flow and spectral Doppler. Exam performed in department. Interpretation Summary Deep veins of the lower extremities are bilaterally patent and compressible segmentally. There is no evidence of deep vein thrombosis on either side. Valvular competence appears intact within the proximal deep venous systems bilaterally. The great saphenous veins appear bilaterally patent and compressible segmentally. Sapheno-femoral junctions are bilaterally competent . Valvular competence appears to be intact segmentally within the great saphenous veins bilaterally. The small saphenous veins are patent and competent bilaterally. Ordering Physician: Víctor Castañeda Referring Physician: Claudio Hall Performed By: Becky De La Cruz RVT
== END ==
PROVIDERS: PCP Family Medicine; Referring Provider Surgery; Visit Provider Surgery
DX: M79.89 Other specified soft tissue disorders (principal); M79.606 Pain in leg, unspecified; I83.10 Varicose veins of unspecified lower extremity with inflammation
CPT/HCPCS: 93970

== ENCOUNTER → 2020-07-03 12:47 | Outpatient (CLI) | payer OTHER, SELFPAY ==
[2019-04-23 09:04] VITALS: BMI 28.8
--- NOTE | 2020-07-03 13:12 | CT_ITS ---
STUDY: CT MAXILLOFACIAL SINUSES REASON FOR EXAM: Female, 64 years old. CHRONIC SINUITIS, ZULEMA PROTOCOL RADIATION DOSAGE (If Supplied By Facility): CTDIvol = ( 03619 ) mGy, DLP = ( 784.26 ) mGycm TECHNIQUE: The patient was scanned in a multi detector CT scanner. High resolution axial imaging was performed without the administration of intravenous contrast material. Sagittal and coronal images were reconstructed. Individualized dose optimization techniques were used for this CT. COMPARISON: None. FINDINGS: FRONTAL SINUSES: Mild mucosal thickening of the right frontal sinus. ETHMOIDAL SINUSES: Partial opacification of the ethmoid sinuses bilaterally worse on the posterior aspect of the left ethmoid sinus. MAXILLARY SINUSES: Partial opacification of the right maxillary sinus with along its inferior portion. SPHENOIDAL SINUSES: Partial opacification of the left sphenoid sinus. There is patency of the bilateral maxillary infundibuli with normal uncinate processes, ethmoid bullae, and hiatus semilunaris. Normal bilateral middle turbinates. There is hypertrophy of the bilateral inferior nasal turbinates. Normal midline nasal septum. There is patency of the bilateral nasal airways. The visualized osseous structures are normal. The visualized bilateral orbital contents are normal. CT/Sinus/Facial Bone IMPRESSION: LEIVA sinusitis. Electronically Signed: Satnam Ellis MD at 13:40 EDT , Service support ,
== END ==
PROVIDERS: PCP Family Medicine; Referring Provider Otolaryngology; Visit Provider Otolaryngology
DX: J32.8 Other chronic sinusitis (principal)
CPT/HCPCS: 70486

== ENCOUNTER → 2020-07-09 | Outpatient (CLI) | payer OTHER, SELFPAY ==
[2019-04-23 09:04] VITALS: BMI 28.8
== END | disposition home or self-care (01) ==
LOC: LABSPEC 15:19
PROVIDERS: PCP Family Medicine; Referring Provider Otolaryngology; Visit Provider Otolaryngology
DX: J32.9 Chronic sinusitis, unspecified (principal)
CPT/HCPCS: 87070; 87077; 87205

== ENCOUNTER → 2021-10-13 | Outpatient (CLI) | payer MEDICARE, SELFPAY ==
[2021-10-13 12:04] LABS: Absolute Lymphocyte Count 1.45 X10^3/uL (0.83-4.51); Absolute Neutrophil Count 2.9 X10^3/uL (2.0-7.7); Basophil# 0.05 X10^3/uL; Basophil% 1.1 % (0-1); Eosinophil# 0.07 X10^3/uL; Eosinophils% 1.5 % (0-5); Hematocrit 37.6 % (37-47); Hemoglobin 11.7 g/dL (12.0-15.0); Lymphocyte # 1.45 X10^3/ul (0.83-4.51); Lymphocyte % 30.5 % (19-41); Mean Corp Hgb Conc 31.1 g/dL (32-36); Mean Corpuscular Hgb 27.2 pg (27.0-32.0); Mean Corpuscular Volume 87.4 fL (81-99); Monocyte# 0.32 X10^3/uL; Monocyte% 6.7 % (0-10); NRBC Flagged by Analyzer 0 % (0-5); Neutrophil # 2.85 X10^3/uL (2.7-7.7); Platelet Count 278 K/mm3 (150-450); White Blood Count 4.8 K/mm3 (4.4-11.0)
[2021-10-13 12:26] LABS: Vitamin D,25 Hydroxy 35.8 ng/mL
[2021-10-13 12:38] LABS: ALB/GLOB Ratio 0.9 RATIO (0.9-2.4); AST(SGOT) 19 U/L (15-37); Alanine Aminotransfer ALT/SGPT 19 U/L (13-56); Albumin, Serum 3.7 g/dL (3.2-5.0); Alkaline Phosphatase 66 U/L (45-117); Anion Gap 4 (5-15); BUN 19 mg/dL (7-18); BUN/Creat Ratio 26.5 RATIO (10-20); Calcium,Total 8.8 mg/dL (8.5-10.1); Chloride 109 mmol/L (98-107); Creatinine, Serum 0.72 mg/dL (0.55-1.02); EST Glomerular Filtration Rate 86 mL/min (>60); Est Glom Filt Rate - Afr Amer 105 mL/min (>60); Globulin 3.9 g/dL (2.2-4.2); Glucose 89 mg/dL (74-106); Potassium 4.1 mmol/L (3.5-5.1); Protein, Total 7.6 g/dL (6.4-8.2); Sodium Level 139 mmol/L (136-145); T4 Free Direct 0.87 ng/dL (0.76-1.46); Thyroid Stim Hormone (TSH) 1.65 uIU/mL (0.358-3.74)
[2021-10-14 12:28] LABS: Ferritin 8 ng/mL (8-252); Iron 58 ug/dL (50-170); Iron Binding Capacity,Total 416 ug/dL (250-450); PERCENT IRON SATURATION 13.9 % (15.0-55.0)
[2021-10-14 12:29] LABS: Vitamin B12 1021 pg/mL (211-911)
== END | disposition home or self-care (01) ==
LOC: MFPLAB 10:57
PROVIDERS: PCP Family Medicine; Referring Provider Family Medicine; Visit Provider Family Medicine
DX: E04.1 Nontoxic single thyroid nodule (principal); M85.80 Other specified disorders of bone density and structure, unspecified site; D64.9 Anemia, unspecified; N39.0 Urinary tract infection, site not specified
CPT/HCPCS: 36415; 80053; 82306; 82607; 82728; 83540; 83550; 84439; 84443; 85025; 87086; 87088; 87186

== ENCOUNTER → 2021-10-19 | Outpatient (CLI) | payer MEDICARE, SELFPAY ==
--- NOTE | 2021-10-19 12:29 | US_ITS ---
STUDY: THYROID ULTRASOUND REASON FOR EXAM: Female, 65 years old. Nodules TECHNIQUE: Ultrasound evaluation of the thyroid was performed with real-time and static gustafson-scale imaging. COMPARISON: None. FINDINGS: RIGHT LOBE: The right lobe of the thyroid gland measures 4.4 x 1.5 x 1.6 cm. There is a heterogeneous echotexture. There is a simple upper pole cyst measuring 1.4 cm and 2 separate solid/cystic nodules measuring 1.2 cm and 0.6 cm. LEFT LOBE: The left lobe of the thyroid gland measures 3.4 x 1.3 x 1.1 cm. There is a heterogeneous echotexture. There is a hypoechoic solid/cystic complex 5 mm nodule ISTHMUS: The isthmus measures 0.3 cm. The regional lymph nodes are normal. US/Thyroid IMPRESSION: Normal size heterogeneous thyroid gland with simple cyst in the right lobe and bilateral solid/cystic complex nodules. Findings suggest goiter. No suspicious nodules are noted. Nodules are mixed cystic and solid, anechoic, [id number], smoothly marginated and contains no echogenic foci. TI-RADS points: 1. TI-RADS category: TR1. Nodules are benign and no FNA or follow-up is necessary. Electronically Signed: Matteo Dumont MD at 15:22 EDT ,
== END | disposition home or self-care (01) ==
PROVIDERS: PCP Family Medicine; Referring Provider Family Medicine; Visit Provider Family Medicine
DX: E04.1 Nontoxic single thyroid nodule (principal)
CPT/HCPCS: 76536

== ENCOUNTER → 2021-12-10 | Outpatient (CLI) | payer MEDICARE, SELFPAY ==
[2021-12-10 12:09] LABS: Absolute Lymphocyte Count 1.62 X10^3/uL (0.83-4.51); Absolute Neutrophil Count 2.5 X10^3/uL (2.0-7.7); Basophil# 0.07 X10^3/uL; Basophil% 1.5 % (0-1); Eosinophil# 0.09 X10^3/uL; Eosinophils% 1.9 % (0-5); Hematocrit 38.9 % (37-47); Hemoglobin 12.1 g/dL (12.0-15.0); Lymphocyte # 1.62 X10^3/ul (0.83-4.51); Lymphocyte % 34.7 % (19-41); Mean Corp Hgb Conc 31.1 g/dL (32-36); Mean Corpuscular Hgb 27.8 pg (27.0-32.0); Mean Corpuscular Volume 89.4 fL (81-99); Mean Platelet Vol. 9.2 fl (6.2-12.0); Monocyte# 0.43 X10^3/uL; Monocyte% 9.2 % (0-10); NRBC Flagged by Analyzer 0 % (0-5); Neutrophil # 2.45 X10^3/uL (2.7-7.7); Neutrophil % 52.5 % (47-70); Platelet Count 235 K/mm3 (150-450); RBC Distribution Width CV 15.6 % (11.6-14.6); RBC Distribution Width SD 51.2 fl (35.1-43.9); Red Blood Count 4.35 M/mm3 (4.2-5.4); White Blood Count 4.7 K/mm3 (4.4-11.0)
[2021-12-10 12:34] LABS: Ferritin 23 ng/mL (8-252); Iron 57 ug/dL (50-170); Iron Binding Capacity,Total 362 ug/dL (250-450)
== END | disposition home or self-care (01) ==
LOC: MFPLAB 11:09
PROVIDERS: PCP Family Medicine; Referring Provider Family Medicine; Visit Provider Family Medicine
DX: D64.9 Anemia, unspecified (principal)
CPT/HCPCS: 36415; 82728; 83540; 83550; 85025

== ENCOUNTER → 2022-05-27 | Outpatient (CLI) | payer MEDICARE, SELFPAY ==
--- NOTE | 2022-05-27 10:13 | RAD_ITS ---
STUDY: X-RAY - PELVIS AND BILATERAL HIPS REASON FOR EXAM: Female, 66 years old. Hip pain. TECHNIQUE: AP view of the pelvis.? 2 views of the right hip, and 2 views of the left hip were obtained. COMPARISON: None. FINDINGS: Normal bowel gas pattern. Phleboliths. Osteopenia. Mild arthrosis of both sacroiliac joints. Normal bilateral superior and inferior pubic rami. Mild arthrosis of the symphysis pubis. Normal bilateral ischial tuberosities. Mild arthrosis of both hips. RAD/Hips B/L min 2 views w/ Pelvis IMPRESSION: Osteopenia with mild arthrosis of the sacroiliac joints, symphysis pubis and both hips. No acute abnormality, evidence of erosive changes/fusion. Electronically Signed: Willie Wood, at 10:55 EDT ,
== END | disposition home or self-care (01) ==
LOC: MTRAD 10:11
PROVIDERS: PCP Family Medicine; Referring Provider Family Medicine; Visit Provider Family Medicine
DX: M25.551 Pain in right hip (principal); M25.552 Pain in left hip
CPT/HCPCS: 73521

== ENCOUNTER → 2022-11-30 | Outpatient (CLI) | payer MEDICARE, SELFPAY ==
[2022-11-30 12:18] LABS: Absolute Lymphocyte Count 1.25 X10^3/uL (0.83-4.51); Absolute Neutrophil Count 2.3 X10^3/uL (2.0-7.7); Basophil# 0.07 X10^3/uL; Basophil% 1.7 % (0-1); Eosinophil# 0.09 X10^3/uL; Eosinophils% 2.2 % (0-5); Hematocrit 35.4 % (37-47); Hemoglobin 10.5 g/dL (12.0-15.0); Lymphocyte # 1.25 X10^3/ul (0.83-4.51); Mean Corp Hgb Conc 29.7 g/dL (32-36); Mean Corpuscular Hgb 27.4 pg (27.0-32.0); Mean Corpuscular Volume 92.4 fL (81-99); Mean Platelet Vol. 9.3 fl (6.2-12.0); Monocyte# 0.35 X10^3/uL; Monocyte% 8.4 % (0-10); NRBC Flagged by Analyzer 0 % (0-5); Neutrophil # 2.33 X10^3/uL (2.7-7.7); Platelet Count 274 K/mm3 (150-450); RBC Distribution Width CV 14.6 % (11.6-14.6); RBC Distribution Width SD 49.1 fl (35.1-43.9); Red Blood Count 3.83 M/mm3 (4.2-5.4); White Blood Count 4.2 K/mm3 (4.4-11.0)
[2022-11-30 12:45] LABS: Vitamin D,25 Hydroxy 31.2 ng/mL
[2022-11-30 12:46] LABS: AST(SGOT) 20 U/L (15-37); Alanine Aminotransfer ALT/SGPT 23 U/L (13-56); Albumin, Serum 3.6 g/dL (3.2-5.0); Alkaline Phosphatase 65 U/L (45-117); Anion Gap 4 (5-15); BUN 14 mg/dL (7-18); BUN/Creat Ratio 21.6 RATIO (10-20); Chloride 111 mmol/L (98-107); Creatinine, Serum 0.65 mg/dL (0.55-1.02); EST Glomerular Filtration Rate 97 mL/min (>60); Est Glom Filt Rate - Afr Amer 117 mL/min (>60); Globulin 3.6 g/dL (2.2-4.2); Glucose 90 mg/dL (74-106); Potassium 4.2 mmol/L (3.5-5.1); Protein, Total 7.2 g/dL (6.4-8.2); Sodium Level 141 mmol/L (136-145)
[2022-12-02 20:56] LABS: Ferritin 6 ng/mL (8-252); Iron 26 ug/dL (50-170); Iron Binding Capacity,Total 396 ug/dL (250-450); PERCENT IRON SATURATION 6.6 % (15.0-55.0)
[2022-12-02 21:09] LABS: Vitamin B12 679 pg/mL (211-911)
== END | disposition home or self-care (01) ==
LOC: MFPLAB 10:21
PROVIDERS: PCP Family Medicine; Visit Provider Family Medicine
DX: M85.80 Other specified disorders of bone density and structure, unspecified site (principal); D64.9 Anemia, unspecified
CPT/HCPCS: 36415; 80053; 82306; 82607; 82728; 83540; 83550; 85025

== ENCOUNTER → 2022-12-07 | Outpatient (CLI) | payer MEDICARE, SELFPAY ==
--- NOTE | 2022-12-07 12:23 | US_ITS ---
STUDY: THYROID ULTRASOUND REASON FOR EXAM: Female, 66 years old. Known nodules TECHNIQUE: Ultrasound evaluation of the thyroid was performed with real-time and static gustafson-scale imaging. COMPARISON: 10/19/2021 FINDINGS: RIGHT LOBE: The right lobe of the thyroid gland measures 4.2 x 1.7 x 2.0 cm. There is a heterogeneous echotexture. There is a stable upper pole cyst measuring 1.4 cm, and 2 stable complex solid/cystic nodules measuring 1.1 and 0.7 cm. These nodules are mixed cystic and solid, anechoic, [id number]-hfsm, smoothly marginated and contains no echogenic foci. TI-RADS points: 1. TI-RADS category: TR1. These nodules are benign and no FNA or follow-up is necessary. LEFT LOBE: The left lobe of the thyroid gland measures 3.5 x 1.4 x 1.3 cm. There is a heterogeneous echotexture. Stable solid 7 mm hypoechoic nodule This nodule is solid or almost completely solid, hypoechoic, [id number], smoothly marginated and contains no echogenic foci. TI-RADS points: 4. TI-RADS category: TR4. This nodule is moderately suspicious but no FNA or follow-up is necessary given the small size of this nodule. ISTHMUS: The isthmus measures 3 mm. The regional lymph nodes are normal. US/Thyroid IMPRESSION: Normal-sized heterogeneous thyroid gland with stable bilateral nodules. Categorization and follow-up as described above Electronically Signed: Matteo Dumont MD at 15:52 EDT ,
== END | disposition home or self-care (01) ==
LOC: US 12:23
PROVIDERS: PCP Family Medicine; Referring Provider Family Medicine; Visit Provider Family Medicine
DX: E04.1 Nontoxic single thyroid nodule (principal)
CPT/HCPCS: 76536

== ENCOUNTER 2022-12-27 08:32 | Day surgery (SDC) | payer MEDICARE, SELFPAY ==
[2022-12-27 08:54] VITALS: BP 120/84; PULSE 97; RESP 16; TEMP 36.6; O2SAT 99; BMI 28.5
[2022-12-27] MEDS: Lactated Ringers 1,000 ML 15 ML IV (08:56)
--- NOTE | 2022-12-27 09:34 | PCM.HP.BLA ---
History and Physical Intake Vital Signs 12/15/2312:02 Height 5 ft 1 in Weight: 154 lb BMI 29.0 BP 126/85 H Blood Pressure Location Rt brachial Position Sitting Respiration 16 Intake Visit Reasons: COLONOSCOPY/LOW HEMOGLOBIN/PUT ON IRON SUPPLEMENTS Chief Complaint: c-scope/egd Gummed Tape Press Operator Required: No Is patient in pain?: No Allergies amoxicillin Allergy (Verified 12/15/22 13:03) RashPenicillins Allergy (Verified 12/15/22 13:03) Other Medications ferrous sulfate 325 mg (65 mg iron) tablet (Feosol) 325 mg PO DAILY 12/15/22 [History Confirmed 12/15/22] vit A 7,160 unit-vit C 113 mg-vit Z-ijnn-cefupn-lutein 0.5 mg tablet 2 tab PO BID 12/15/22 [History Confirmed 12/15/22] PFSH Medical History (Updated 12/15/22 @ 15:[address] Nathan Rizvi MD) hx of cancer Joint swelling Knee pain Morning stiffness of joints Surgical History (Updated 12/15/22 @ 13:08 by Delicia Rea) Hx of tubal ligation S/P carpal tunnel release S/P skin biopsy Social History (Updated 12/15/22 @ 13:10 by Delicia Rea) Smoking Status: Never smoker how long ago did patient quit smoking: stopped in 1976 alcohol intake: current alcohol intake frequency: a few times a week what type of physical activity do you participate in: none do you feel safe at home: Yes HPI HPI HPI: Patient is a 66-year-old female here for anemia. She was recently placed on iron tablets. She does not notice any gross blood in her stool and she is having no abdominal pain. Her last colonoscopy was 5 years ago. ROS General General: No weight change, appetite, fatigue, colon cancer, breast cancer or weakness HEENT HEENT: No difficulty swallowing, eye injury, eye surgery, swollen glands or hoarseness Endo Endocrine: No thyroid disease, diabetes mellitus, thyroid cancer, Hair loss, heat intolerance or cold intolerance Skin Skin: No rash or changing moles Breast Breast: No left breast lump, right breast lump, nipple discharge, breast pain, abnormal mammogram, abnormal US or breast enlargement Musc Musculoskeletal: No back problems, arthritis, rheumatoid arthritis, gout or joint pain Cardio Cardiovascular: No murmur, pacemaker, heart disease, atrial fibrillation, high blood pressure, heart attack, heart stent, palpitations, shortness of breat with exertion or chest pain Psych Psychiatric: No depression, anxiety or hearing voices Resp Respiratory: No shortness of breath, No sleep apnea, No cough, No COPD, No asthma, No emphysema and No wheezing Gastro Gastrointestinal: No abdominal pain, No nausea or vomiting, No diarrhea, No constipation, No blood in stool, No acid reflux, No hemorrhoids, No ulcers, No gallbladder problem and No black,tarry stools Corey Hematologic: No blood thinners, No blood disorders, No bleeding, Yes anemia and No blood clots Neuro Neurologic: No system reviewed and no additional complaints, except as documented, No as per HPI, No abnormal gait, No abnormal hearing, No abnormal movements, No abnormal speech, No behavioral changes, No burning sensations, No confusion, No convulsions, No disequilibrium, No dizziness, No localized weakness, No frequent falls, No headache(s), No lack of coordination, No loss of vision, No memory loss, No numbness, No other visual disturbances, No radicular pain, No restless legs, No sensory deficit, No syncope, No tingling, No tremor(s), No weakness and No other Exam Const General: cooperative Orientation: alert and oriented x3 HENDE Head: normal to inspection Neck Neck: normal visual inspection and full ROM Chest Chest palpation & inspection: normal inspection of the chest Resp Effort & Inspection: normal respiratory effort Auscultation: clear to auscultation bilaterally Cardio Rate: regular rate Rhythm: regular rhythm GI Inspection: non-distended Palpation: soft and nontender Skin General: no rashes or lesions noted Neuro General: patient alert and patient oriented x3 Extrem General: full ROM Psych Appearance: grossly normal Mental Status: mental status grossly normal Assessment and Plan Assessment and Plan (1) Anemia: Status: Acute Qualifiers: Anemia type: iron deficiency Iron deficiency anemia type: unspecified iron deficiency Qualified Code(s): D50.9 - Iron deficiency anemia, unspecified Plan: Patient has iron deficiency anemia and requires endoscopy. I will perform an EGD and colonoscopy for her. I explained endoscopy in detail to the patient. I explained the risks including but not limited to stroke or heart attack with anesthesia, perforation of the GI tract, bleeding, infection. I explained that any of these could necessitate further emergency surgery. The patient understands and all questions were answered sufficiently. The patient wishes to proceed with procedure. Nathan Rizvi MD Pager: [facility] [address] [place] [address] [address] [place] [address] Office: I have examined the patient and the H&P has been reviewed. There are no clinical changes since date of exam.
[2022-12-27 10:15] VITALS: BP 120/84; BP 97/63; PULSE 69; RESP 70; TEMP 36.1; O2SAT 16
[2022-12-27 10:20] VITALS: BP 120/84; BP 95/67; PULSE 65; RESP 16; O2SAT 98
--- NOTE | 2022-12-27 10:21 | OP.EGD_ITS ---
Patient Name: Radha Smith Procedure Date: 12/27/2022 9:43 AM Date of : 1955 Age: 67 Procedure: Upper GI endoscopy Indications: Iron deficiency anemia Providers: Nathan Rizvi MD Referring MD: Nathan Rizvi MD Medicines: Monitored Anesthesia Care Patient Profile: This is a 67 year old female. Refer to note in patient chart for documentation of history and physical. Complications: No immediate complications. Procedure: Pre-Anesthesia Assessment: - Prior to the procedure, a History and Physical was performed, and patient medications and allergies were reviewed. The patient's tolerance of previous anesthesia was also reviewed. The risks and benefits of the procedure and the sedation options and risks were discussed with the patient. All questions were answered, and informed consent was obtained. Prior Anticoagulants: The patient has taken no anticoagulant or antiplatelet agents. After reviewing the risks and benefits, the patient was deemed in satisfactory condition to undergo the procedure. After obtaining informed consent, the endoscope was passed under direct vision. Throughout the procedure, the patient's blood pressure, pulse, and oxygen saturations were monitored continuously. The gastroscope was introduced through the mouth, and advanced to the fourth part of duodenum. The upper GI endoscopy was accomplished without difficulty. The patient tolerated the procedure well. Scope In: 9:51:15 AM Scope Out: 9:52:38 AM Total Procedure Duration Time 0 hours 1 minute 23 seconds Findings: The esophagus was normal. The stomach was normal. The examined duodenum was normal. Impression: - Normal esophagus. - Normal stomach. - Normal examined duodenum. - No specimens collected. Recommendation: - Discharge patient to home. - Resume previous diet. - Continue present medications. Procedure Code(s): --- Professional --- 28523, Esophagogastroduodenoscopy, flexible, transoral; diagnostic, including collection of specimen(s) by brushing or washing, when performed (separate procedure) Diagnosis Code(s): --- Professional --- D50.9, Iron deficiency anemia, unspecified CPT copyright 2021 [employer]. All rights reserved. The codes documented in this report are preliminary and upon coal crusher operator review may be revised to meet current compliance requirements. Nathan Rizvi MD 12/27/2022 10:21:16 AM This report has been signed electronically. Number of Addenda: 0 Note Initiated On: 12/27/2022 9:43 AM
--- NOTE | 2022-12-27 10:21 | OP.CCLET_ITS ---
12/27/2022 Claudio Felton [address] [place] [address] Re : Upper GI endoscopy procedure for Radha Dingught Dear Dr. Felton This procedure was performed on Tuesday, December 27, 2022. My impressions and recommendations are as follows: Impressions : - Normal esophagus. - Normal stomach. - Normal examined duodenum. - No specimens collected. Recommendations : - Discharge patient to home. - Resume previous diet. - Continue present medications. My findings are described in the full procedure note, which is enclosed. If I can be of further assistance, please feel free to contact me at Doctor phone number(s): , Work: . Sincerely, Nathan Rizvi MD 12/27/2022 10:21:16 AM This report has been signed electronically.
--- NOTE | 2022-12-27 10:23 | OP.COLON_ITS ---
Patient Name: Radha Smith Procedure Date: 12/27/2022 9:54 AM Date of : 1955 Age: 67 Procedure: Colonoscopy Indications: Iron deficiency anemia Providers: Nathan Rizvi MD Referring MD: Nathan Rizvi MD Medicines: Monitored Anesthesia Care Patient Profile: This is a 67 year old female. Refer to note in patient chart for documentation of history and physical. Last Colonoscopy: 5 years ago. Complications: No immediate complications. Procedure: Pre-Anesthesia Assessment: - Prior to the procedure, a History and Physical was performed, and patient medications and allergies were reviewed. The patient's tolerance of previous anesthesia was also reviewed. The risks and benefits of the procedure and the sedation options and risks were discussed with the patient. All questions were answered, and informed consent was obtained. Prior Anticoagulants: The patient has taken no anticoagulant or antiplatelet agents. After reviewing the risks and benefits, the patient was deemed in satisfactory condition to undergo the procedure. After I obtained informed consent, the scope was passed under direct vision. Throughout the procedure, the patient's blood pressure, pulse, and oxygen saturations were monitored continuously. The Colonoscope was introduced through the anus and advanced to the cecum, identified by appendiceal orifice and ileocecal valve. The colonoscopy was performed without difficulty. The patient tolerated the procedure well. The quality of the bowel preparation was good. The ileocecal valve, appendiceal orifice, and rectum were photographed. Scope In: 9:55:29 AM Scope Withdrawal Time 0 hours 5 minutes 17 seconds Scope Out: 10:08:52 AM Total Procedure Duration Time 0 hours 13 minutes 23 seconds Findings: The entire examined colon appeared normal on direct and retroflexion views. Impression: - The entire examined colon is normal on direct and retroflexion views. - No specimens collected. Recommendation: - Discharge patient to home. - Resume previous diet. - Continue present medications. - Repeat colonoscopy is not recommended due to current age (66 years or older) for screening purposes. Procedure Code(s): --- Professional --- 98766, Colonoscopy, flexible; diagnostic, including collection of specimen(s) by brushing or washing, when performed (separate procedure) Diagnosis Code(s): --- Professional --- D50.9, Iron deficiency anemia, unspecified CPT copyright 2021 [employer]. All rights reserved. The codes documented in this report are preliminary and upon forest management teacher review may be revised to meet current compliance requirements. Nathan Rizvi MD 12/27/2022 10:22:30 AM This report has been signed electronically. Number of Addenda: 0 Note Initiated On: 12/27/2022 9:54 AM
--- NOTE | 2022-12-27 10:23 | OP.CCLET_ITS ---
12/27/2022 Claudio Felton [address] [place] [address] Re : Colonoscopy procedure for Radha Smith Dear Dr. Felton This procedure was performed on Tuesday, December 27, 2022. My impressions and recommendations are as follows: Impressions : - The entire examined colon is normal on direct and retroflexion views. - No specimens collected. Recommendations : - Discharge patient to home. - Resume previous diet. - Continue present medications. - Repeat colonoscopy is not recommended due to current age (66 years or older) for screening purposes. My findings are described in the full procedure note, which is enclosed. If I can be of further assistance, please feel free to contact me at Doctor phone number(s): , Work: . Sincerely, Nathan Rizvi MD 12/27/2022 10:22:30 AM This report has been signed electronically.
[2022-12-27 10:25] VITALS: BP 120/84; BP 98/69; PULSE 63; RESP 16; O2SAT 98
[2022-12-27 10:30] VITALS: BP 110/79; BP 120/84; PULSE 79; RESP 16; TEMP 36.1; O2SAT 95
[2022-12-27 10:56] VITALS: BP 120/84
== END 2022-12-27 11:25 | disposition home or self-care (01) ==
LOC: EN 08:33 → AC 08:34
PROVIDERS: PCP Family Medicine; Referring Provider Surgery; Visit Provider Surgery
PROC: 0DJD8ZZ Inspection of Lower Intestinal Tract, Via Natural or Artificial Opening Endoscopic (ICD-10-PCS; CPT 45378; principal; 2022-12-27 09:40)
DX: D50.9 Iron deficiency anemia, unspecified (principal)
CPT/HCPCS: 43235; 45378; J7120

== ENCOUNTER → 2023-01-04 | Outpatient (CLI) | payer MEDICARE, SELFPAY ==
[2023-01-04 16:00] LABS: Absolute Lymphocyte Count 1.42 X10^3/uL (0.83-4.51); Absolute Neutrophil Count 2.5 X10^3/uL (2.0-7.7); Basophil# 0.05 X10^3/uL; Basophil% 1.1 % (0-1); Eosinophil# 0.08 X10^3/uL; Eosinophils% 1.8 % (0-5); Hematocrit 40.2 % (37-47); Hemoglobin 12.5 g/dL (12.0-15.0); Lymphocyte # 1.42 X10^3/ul (0.83-4.51); Lymphocyte % 31.8 % (19-41); Mean Corp Hgb Conc 31.1 g/dL (32-36); Mean Corpuscular Hgb 28.4 pg (27.0-32.0); Mean Corpuscular Volume 91.4 fL (81-99); Mean Platelet Vol. 9.5 fl (6.2-12.0); Monocyte# 0.44 X10^3/uL; Monocyte% 9.9 % (0-10); NRBC Flagged by Analyzer 0 % (0-5); Neutrophil # 2.46 X10^3/uL (2.7-7.7); Neutrophil % 55.2 % (47-70); Platelet Count 262 K/mm3 (150-450); RBC Distribution Width SD 50.2 fl (35.1-43.9); White Blood Count 4.5 K/mm3 (4.4-11.0)
[2023-01-04 16:15] LABS: Ferritin 26 ng/mL (8-252); Iron 90 ug/dL (50-170); Iron Binding Capacity,Total 457 ug/dL (250-450)
== END | disposition home or self-care (01) ==
LOC: MFPLAB 11:43
PROVIDERS: PCP Family Medicine; Visit Provider Family Medicine
DX: D50.9 Iron deficiency anemia, unspecified (principal)
CPT/HCPCS: 36415; 82728; 83540; 83550; 85025

== ENCOUNTER → 2023-06-15 | Outpatient (CLI) | payer MEDICARE, SELFPAY ==
[2023-06-15 15:10] LABS: Absolute Lymphocyte Count 1.21 X10^3/uL (0.83-4.51); Absolute Neutrophil Count 2.5 X10^3/uL (2.0-7.7); Basophil# 0.05 X10^3/uL; Basophil% 1.2 % (0-1); Eosinophil# 0.04 X10^3/uL; Hematocrit 40.8 % (37-47); Hemoglobin 12.7 g/dL (12.0-15.0); Lymphocyte # 1.21 X10^3/ul (0.83-4.51); Lymphocyte % 29.2 % (19-41); Mean Corp Hgb Conc 31.1 g/dL (32-36); Mean Corpuscular Volume 93.2 fL (81-99); Mean Platelet Vol. 9.4 fl (6.2-12.0); Monocyte# 0.32 X10^3/uL; Monocyte% 7.7 % (0-10); NRBC Flagged by Analyzer 0 % (0-5); Neutrophil # 2.52 X10^3/uL (2.7-7.7); Neutrophil % 60.7 % (47-70); Platelet Count 277 K/mm3 (150-450); RBC Distribution Width CV 13.1 % (11.6-14.6); RBC Distribution Width SD 44.8 fl (35.1-43.9); Red Blood Count 4.38 M/mm3 (4.2-5.4); White Blood Count 4.2 K/mm3 (4.4-11.0)
[2023-06-15 15:27] LABS: Ferritin 33 ng/mL (8-252); Iron 63 ug/dL (50-170); Iron Binding Capacity,Total 338 ug/dL (250-450)
== END | disposition home or self-care (01) ==
LOC: MFPLAB 11:22
PROVIDERS: PCP Family Medicine; Visit Provider Family Medicine
DX: D50.9 Iron deficiency anemia, unspecified (principal); M85.80 Other specified disorders of bone density and structure, unspecified site
CPT/HCPCS: 36415; 82306; 82728; 83540; 83550; 85025

== ENCOUNTER → 2023-07-17 | Outpatient (CLI) | payer MEDICARE, SELFPAY ==
[2023-07-17 12:33] LABS: Absolute Lymphocyte Count 1.32 X10^3/uL (0.83-4.51); Absolute Neutrophil Count 2.8 X10^3/uL (2.0-7.7); Basophil# 0.06 X10^3/uL; Basophil% 1.3 % (0-1); Eosinophil# 0.08 X10^3/uL; Eosinophils% 1.7 % (0-5); Hematocrit 40.7 % (37-47); Lymphocyte # 1.32 X10^3/ul (0.83-4.51); Mean Corp Hgb Conc 31.9 g/dL (32-36); Mean Corpuscular Hgb 29.2 pg (27.0-32.0); Mean Corpuscular Volume 91.5 fL (81-99); Mean Platelet Vol. 9.2 fl (6.2-12.0); Monocyte# 0.42 X10^3/uL; Monocyte% 8.9 % (0-10); NRBC Flagged by Analyzer 0 % (0-5); Neutrophil # 2.83 X10^3/uL (2.7-7.7); Neutrophil % 59.9 % (47-70); Platelet Count 263 K/mm3 (150-450); RBC Distribution Width SD 43.2 fl (35.1-43.9); Red Blood Count 4.45 M/mm3 (4.2-5.4); White Blood Count 4.7 K/mm3 (4.4-11.0)
[2023-07-17 12:51] LABS: Iron 49 ug/dL (50-170); Iron Binding Capacity,Total 320 ug/dL (250-450); PERCENT IRON SATURATION 15.3 % (15.0-55.0)
== END | disposition home or self-care (01) ==
PROVIDERS: PCP Family Medicine; Referring Provider Family Medicine; Visit Provider Family Medicine
DX: D50.9 Iron deficiency anemia, unspecified (principal)
CPT/HCPCS: 36415; 83540; 83550; 85025

== ENCOUNTER → 2023-12-15 | Outpatient (CLI) | payer MEDICARE, SELFPAY ==
[2023-12-15 11:58] LABS: Absolute Lymphocyte Count 1.08 X10^3/uL (0.83-4.51); Absolute Neutrophil Count 2.4 X10^3/uL (2.0-7.7); Basophil# 0.06 X10^3/uL; Basophil% 1.5 % (0-1); Eosinophil# 0.07 X10^3/uL; Eosinophils% 1.7 % (0-5); Hematocrit 39.8 % (37-47); Hemoglobin 12.6 g/dL (12.0-15.0); Lymphocyte # 1.08 X10^3/ul (0.83-4.51); Lymphocyte % 26.9 % (19-41); Mean Corp Hgb Conc 31.7 g/dL (32-36); Mean Corpuscular Hgb 29.6 pg (27.0-32.0); Mean Corpuscular Volume 93.6 fL (81-99); Mean Platelet Vol. 9.6 fl (6.2-12.0); Monocyte# 0.38 X10^3/uL; Monocyte% 9.5 % (0-10); NRBC Flagged by Analyzer 0 % (0-5); Neutrophil # 2.41 X10^3/uL (2.7-7.7); Neutrophil % 59.9 % (47-70); Platelet Count 256 K/mm3 (150-450); RBC Distribution Width CV 12.8 % (11.6-14.6); RBC Distribution Width SD 43.8 fl (35.1-43.9); Red Blood Count 4.25 M/mm3 (4.2-5.4)
[2023-12-15 12:53] LABS: Ferritin 36 ng/mL (8-252); Iron 58 ug/dL (50-170); Iron Binding Capacity,Total 313 ug/dL (250-450)
== END | disposition home or self-care (01) ==
LOC: MFPLAB 10:03
PROVIDERS: PCP Family Medicine; Visit Provider Family Medicine
DX: D50.9 Iron deficiency anemia, unspecified (principal)
CPT/HCPCS: 36415; 82728; 83540; 83550; 85025

== ENCOUNTER → 2024-01-15 | Outpatient (CLI) | payer MEDICARE, SELFPAY ==
--- NOTE | 2024-01-15 14:25 | US_ITS ---
STUDY: THYROID ULTRASOUND REASON FOR EXAM: Female, 68 years old. Nodule TECHNIQUE: Ultrasound evaluation of the thyroid was performed with real-time and static gustafson-scale imaging. COMPARISON: 12/07/2022 FINDINGS: RIGHT LOBE: The right lobe of the thyroid gland measures 3.9 x 1.6 x 1.5 cm. There is a heterogeneous echotexture. Nodule 1: No change in the 13 x 10 x 8 mm mixed cystic and solid isoechoic wire than tall ill-defined margin nodule and no echogenic foci (TR 2) in the posterior right lobe consistent with an adenoma. Nodule 2: No change in the 10 x 10 x 10 mm mixed cystic and solid isoechoic water than tall ill-defined marginated nodule with no echogenic foci (TR 2) in the medial right lobe consistent with an adenoma. Nodule 3: No change in the 6 x 4 x 5 mm solid hypoechoic wider than tall smoothly margined nodule with no echogenic foci (TR 4) within the medial right lobe adjacent to the isthmus consistent with an adenoma. LEFT LOBE: The left lobe of the thyroid gland measures 3.6 x 1.3 x 1.0 cm. There is a heterogeneous echotexture. There are no demonstrated solid, cystic or complex lesions. ISTHMUS: The isthmus measures 3 mm thick. . The regional lymph nodes are normal. US/Thyroid IMPRESSION: Thyroiditis with no change of multiple adenomas. Electronically Signed: Florin Black MD at 9:00 EST ,
== END | disposition home or self-care (01) ==
PROVIDERS: PCP Family Medicine; Referring Provider Family Medicine; Visit Provider Family Medicine
DX: E04.1 Nontoxic single thyroid nodule (principal)
CPT/HCPCS: 76536

== ENCOUNTER → 2024-01-30 | Outpatient (CLI) | payer MEDICARE, SELFPAY ==
[2024-01-30 18:05] LABS: AST(SGOT) 22 U/L (15-37); Alanine Aminotransfer ALT/SGPT 24 U/L (13-56); Albumin, Serum 3.9 g/dL (3.2-5.0); Alkaline Phosphatase 67 U/L (45-117); Anion Gap 6 (5-15); BUN 15 mg/dL (7-18); BUN/Creat Ratio 18.2 RATIO (10-20); Calcium,Total 9.6 mg/dL (8.5-10.1); Chloride 107 mmol/L (98-107); Creatinine, Serum 0.82 mg/dL (0.55-1.02); EST Glomerular Filtration Rate 73 mL/min (>60); Est Glom Filt Rate - Afr Amer 89 mL/min (>60); Globulin 3.9 g/dL (2.2-4.2); Glucose 79 mg/dL (74-106); Potassium 3.6 mmol/L (3.5-5.1); Protein, Total 7.8 g/dL (6.4-8.2); Sodium Level 137 mmol/L (136-145)
== END | disposition home or self-care (01) ==
LOC: MFPLAB 13:52
PROVIDERS: PCP Family Medicine; Visit Provider Family Medicine
DX: M85.80 Other specified disorders of bone density and structure, unspecified site (principal)
CPT/HCPCS: 36415; 80053

== ENCOUNTER → 2025-01-21 | Outpatient (CLI) | payer MEDICARE, SELFPAY ==
[2025-01-21 15:09] LABS: Hematocrit 38.1 % (37-47); Hemoglobin 12.2 g/dL (12.0-15.0); Immature Granulocytes Count 0.010 X10^3/uL (0.0-0.0); Mean Corp Hgb Conc 32.0 g/dL (32-36); Mean Corpuscular Volume 92.5 fL (81-99); Mean Platelet Vol. 9.0 fl (6.2-12.0); NRBC Flagged by Analyzer 0 % (0-5); Platelet Count 269 K/mm3 (150-450); RBC Distribution Width CV 13.2 % (11.6-14.6); RBC Distribution Width SD 45.0 fl (35.1-43.9); Red Blood Count 4.12 M/mm3 (4.2-5.4); White Blood Count 4.6 K/mm3 (4.4-11.0)
[2025-01-21 15:51] LABS: AST(SGOT) 28 U/L (<=31); Alanine Aminotransfer ALT/SGPT 19 U/L (<=34); Albumin, Serum 4.2 g/dL (3.4-4.8); Alkaline Phosphatase 66 U/L (35-104); Anion Gap 8 (5-15); BUN 19 mg/dL (4-19); BUN/Creat Ratio 30.7 RATIO (10-20); Calcium,Total 9.5 mg/dL (7.6-11.0); Carbon Dioxide 24.6 mmol/L (21.0-32.0); Chloride 107 mmol/L (98-108); Ferritin 32 ng/mL (22-378); Globulin 2.7 g/dL (2.2-4.2); Glucose 92 mg/dL (70-99); Iron 64 ug/dL (50-170); Iron Binding Capacity,Total 341 ug/dL (250-450); Iron Binding Capacity,Unsat 277 ug/dL (228-428); Potassium 4.4 mmol/L (3.3-5.1); Vitamin D,25 Hydroxy 35.0 ng/mL (30-100)
== END | disposition home or self-care (01) ==
LOC: MTLAB 11:02
PROVIDERS: PCP Family Medicine; Referring Provider Family Medicine; Visit Provider Family Medicine
DX: D50.9 Iron deficiency anemia, unspecified (principal); M85.80 Other specified disorders of bone density and structure, unspecified site
CPT/HCPCS: 36415; 80053; 82306; 82728; 83540; 83550; 85025

== ENCOUNTER → 2025-01-30 | Outpatient (CLI) | payer MEDICARE, SELFPAY ==
--- NOTE | 2025-01-30 15:09 | US_ITS ---
PROCEDURE: THYROID 01/30/2025 REASON FOR EXAM: Known nodules, surveillance TECHNIQUE: Procedure Code: USTHY Modality: US Procedure: THYROID COMPARISON: 2023, 2022 FINDINGS: Right thyroid lobe size: 4.8 x 1.5 x 1.8 cm Left thyroid lobe size: 4.4 x 1.4 x 1.2 cm Isthmus: 0.3 cm Background parenchymal echotexture is heterogeneous Nodules: 1. Lobe: Right, Location: Upper, Size: 1.2 x 1.0 x 0.7 cm, Stability: Stable Composition: Mixed cystic and solid (+1) Echogenicity: Hypoechoic (+2) Margin: Smooth (+0) Shape: Wider than tall (+0) Echogenic Foci: None (+0) TI-RADS: <2 = TR 1 * 2 = TR 2 * 3 = TR 3 * 4-6 = TR 4 * >6 = TR 5 2. Lobe: Right, Location: Mid, Size: 0.5 x 0.6 x 0.4 cm, Stability: Stable Composition: Cystic or mostly cystic (+0) Echogenicity: Anechoic (+0) Margin: Smooth (+0) Shape: Wider than tall (+0) Echogenic Foci: None (+0) TI-RADS: <2 = TR 1 * 2 = TR 2 * 3 = TR 3 * 4-6 = TR 4 * >6 = TR 5 3. Lobe: Right, Location: Mid to lower, Size: 1.2 x 1.1 x 1.1 cm, Stability: Stable Composition: Mixed cystic and solid (+1) Echogenicity: Hypoechoic (+2) Margin: Smooth (+0) Shape: Wider than tall (+0) Echogenic Foci: None (+0) TI-RADS: <2 = TR 1 * 2 = TR 2 * 3 = TR 3 * 4-6 = TR 4 * >6 = TR 5 4. Lobe: Left, Location: Lower, Size: 0.7 x 0.6 x 0.5 cm, Stability: Stable Composition: Mixed cystic and solid (+1) Echogenicity: Hypoechoic (+2) Margin: Smooth (+0) Shape: Wider than tall (+0) Echogenic Foci: None (+0) TI-RADS: <2 = TR 1 * 2 = TR 2 * 3 = TR 3 * 4-6 = TR 4 * >6 = TR 5 US/Thyroid IMPRESSION: Normal-sized heterogeneous thyroid gland with bilateral nodules and cysts that are unchanged. No intervention needed as all score TR 3 or less, and because of their size can be followed sonographically. No new suspicious mass or nodule, no hyperemia or adenopathy RECOMMENDATION: Based on most suspicious nodule. Nodule size = largest diameter Only evaluate nodule if =>5 mm. Growth > 20% in 2 dimensions = worsening. Follow up to 4 nodules. Recommend biopsy for no more than 2 nodules. Reading Location: [id number]
== END | disposition home or self-care (01) ==
LOC: US 15:07
PROVIDERS: PCP Family Medicine; Referring Provider Family Medicine; Visit Provider Family Medicine
DX: E04.1 Nontoxic single thyroid nodule (principal)
CPT/HCPCS: 76536